=== PATIENT | male | born 1970 | race Caucasian/White ===

== ENCOUNTER 2016-10-24 19:02 | Emergency (ER) | payer MEDICARE, OTHER ==
[~2016-10-24] VITALS: Ht 180.3 cm; Wt 83.6 kg
[~2016-10-24 19:02] MED LIST: DILT60 PO; ENAL5 PO
[2016-10-24 19:27] LABS: GLUCOSE,POINT OF CARE 113 MG/DL (70-110)
[2016-10-24] MEDS ORDERED: INSREG SQ (19:38)
[2016-10-24 21:46] VITALS: BP 128/80
[2016-10-24 21:56] LABS: INFLUENZA TYPE B NEGATIVE FOR TYPE B (NEGATIVE)
== END 2016-10-24 21:55 | disposition home or self-care (01) ==
LOC: EMS 19:04
DX: J40 Bronchitis, not specified as acute or chronic (principal); I11.0 Hypertensive heart disease with heart failure; I50.9 Heart failure, unspecified; E11.9 Type 2 diabetes mellitus without complications; Z79.4 Long term (current) use of insulin
CPT/HCPCS: 71020; 82962; 87804; 99285

== ENCOUNTER 2017-09-26 11:36 | Emergency (ER) | payer MEDICARE, MEDICAID ==
[2017-09-26] VITALS (7 sets, daily range): BP systolic 117–128; BP diastolic 70–74
[~2017-09-26] VITALS: Ht 177.8 cm; Wt 86.5 kg
[~2017-09-26 11:36] MED LIST changes: -DILT60 PO; -ENAL5 PO; +INSREG SQ; +METO25 PO
[2017-09-26 12:02] LABS: GLUCOSE,POINT OF CARE 119 MG/DL (70-110)
[2017-09-26 12:25] LABS: EOSINOPHILS % (AUTO) 2.8 % (1.0-6.0); HEMATOCRIT 22.7 % (41-53); HEMOGLOBIN 7.3 g/dL (13.5-17.5); LYMPHOCYTES # (AUTO) 1.3 K/uL (1.0-4.8); LYMPHOCYTES % (AUTO) 10.8 % (22.0-44.0); MEAN CORPUSCULAR HEMOGLOBIN 31.4 pg (26.0-34.0); MEAN CORPUSCULAR HGB CONC 32.2 G/dL (31.0-37.0); MEAN CORPUSCULAR VOLUME 98 fL (80-100); MONOCYTES # (AUTO) 1.5 K/uL (0.1-1.0); MONOCYTES % (AUTO) 11.7 % (2.0-9.0); NEUTROPHILS # (AUTO) 9.1 K/uL (1.8-7.7); NEUTROPHILS % (AUTO) 73.7 % (40.0-70.0); PLATELET COUNT (AUTO) 495 K/uL (150-450); RED BLOOD CELL COUNT(AUTO) 2.33 MIL/uL (4.50-5.90); RED CELL DISTRIBUTION WIDTH 19.4 % (11.5-14.5)
[2017-09-26 12:41] LABS: CALCIUM, TOTAL 9.5 mg/dL (8.8-10.5); CREATININE 6.34 mg/dL (0.60-1.30); POTASSIUM 4.6 mmol/L (3.5-5.1)
[2017-09-26] MEDS ORDERED: SODIUM CHLORIDE 0.9% 500 ML IV ONE (16:37)
== END 2017-09-26 19:36 | disposition home or self-care (01) ==
LOC: EMS 11:40
DX: I13.2 Hypertensive heart and chronic kidney disease with heart failure and with stage 5 chronic kidney disease, or end stage renal disease (principal); I50.9 Heart failure, unspecified; N18.6 End stage renal disease; E11.22 Type 2 diabetes mellitus with diabetic chronic kidney disease; Z99.2 Dependence on renal dialysis; Z79.4 Long term (current) use of insulin
CPT/HCPCS: 36415; 36430; 80048; 82271; 82962; 85025; 86850; 86900; 86901; 86920; 99285; J7040; P9016

== ENCOUNTER 2017-10-17 13:42 | Emergency (ER) | payer MEDICARE, MEDICAID ==
[~2017-10-17] VITALS: Ht 180.3 cm; Wt 86.6 kg
[2017-10-17 13:52] LABS: GLUCOSE,POINT OF CARE 82 MG/DL (70-110)
[2017-10-17 15:39] LABS: BASOPHILS % (AUTO) 0.8 % (0.0-2.0); EOSINOPHILS % (AUTO) 5.4 % (1.0-6.0); HEMATOCRIT 21.8 % (41-53); LYMPHOCYTES # (AUTO) 1.4 K/uL (1.0-4.8); LYMPHOCYTES % (AUTO) 11.4 % (22.0-44.0); MEAN CORPUSCULAR HEMOGLOBIN 31.1 pg (26.0-34.0); MEAN CORPUSCULAR HGB CONC 32.2 G/dL (31.0-37.0); MEAN CORPUSCULAR VOLUME 97 fL (80-100); MONOCYTES # (AUTO) 1.2 K/uL (0.1-1.0); NEUTROPHILS # (AUTO) 8.7 K/uL (1.8-7.7); NEUTROPHILS % (AUTO) 72.4 % (40.0-70.0); PLATELET COUNT (AUTO) 376 K/uL (150-450); RED BLOOD CELL COUNT(AUTO) 2.25 MIL/uL (4.50-5.90); RED CELL DISTRIBUTION WIDTH 19.1 % (11.5-14.5)
[2017-10-17 15:58] LABS: CALCIUM, TOTAL 9.6 mg/dL (8.8-10.5); CREATININE 6.55 mg/dL (0.60-1.30); POTASSIUM 4.4 mmol/L (3.5-5.1)
[2017-10-17 16:02] LABS: ALBUMIN 2.5 g/dL (3.4-5.0); BILIRUBIN,TOTAL 0.4 mg/dL (0.1-1.0); TOTAL PROTEIN, SERUM 7.2 g/dL (6.4-8.2)
[2017-10-17 16:29] VITALS: BP 144/77
== END 2017-10-17 16:31 | disposition home or self-care (01) ==
LOC: EMS 13:44
DX: I13.2 Hypertensive heart and chronic kidney disease with heart failure and with stage 5 chronic kidney disease, or end stage renal disease (principal); E11.22 Type 2 diabetes mellitus with diabetic chronic kidney disease; N18.6 End stage renal disease; I50.9 Heart failure, unspecified; D64.9 Anemia, unspecified; I25.10 Atherosclerotic heart disease of native coronary artery without angina pectoris; R53.83 Other fatigue; Z88.8 Allergy status to other drugs, medicaments and biological substances; Z79.4 Long term (current) use of insulin; Z99.2 Dependence on renal dialysis
CPT/HCPCS: 82962; 93005; 99285

== ENCOUNTER 2017-10-20 01:43 | Emergency (ER) | payer MEDICARE, MEDICAID ==
[~2017-10-20] VITALS: Ht 177.8 cm; Wt 86.5 kg
[2017-10-20] MEDS ORDERED: SEVEC800 PO (01:58)
[2017-10-20 02:08] LABS: GLUCOSE,POINT OF CARE 69 MG/DL (70-110)
[2017-10-20 02:21] LABS: HEMATOCRIT 21.9 % (41-53); HEMOGLOBIN 7.1 g/dL (13.5-17.5); LYMPHOCYTES # (AUTO) 0.9 K/uL (1.0-4.8); LYMPHOCYTES % (AUTO) 7.3 % (22.0-44.0); MEAN CORPUSCULAR HGB CONC 32.6 G/dL (31.0-37.0); MEAN CORPUSCULAR VOLUME 95 fL (80-100); MONOCYTES # (AUTO) 0.9 K/uL (0.1-1.0); MONOCYTES % (AUTO) 7.2 % (2.0-9.0); NEUTROPHILS # (AUTO) 9.9 K/uL (1.8-7.7); NEUTROPHILS % (AUTO) 79.5 % (40.0-70.0); PLATELET COUNT (AUTO) 429 K/uL (150-450); RED CELL DISTRIBUTION WIDTH 19.6 % (11.5-14.5)
[2017-10-20 02:29] LABS: CALCIUM, TOTAL 9.5 mg/dL (8.8-10.5); CREATININE 7.22 mg/dL (0.60-1.30); POTASSIUM 3.9 mmol/L (3.5-5.1)
[2017-10-20 02:33] LABS: INR 1.1 (0.9-1.1); PROTHROMBIN TIME 11.5 SEC (9.4-11.6)
[2017-10-20 02:36] LABS: ALBUMIN 2.5 g/dL (3.4-5.0); BILIRUBIN,TOTAL 0.3 mg/dL (0.1-1.0); TOTAL PROTEIN, SERUM 7.2 g/dL (6.4-8.2)
[2017-10-20 05:11] VITALS: BP 148/79
[2017-10-20] MEDS ORDERED: MetroNIDAZOLE 250 MG TABLET PO ONE (05:15)
[2017-10-20] MEDS ORDERED: TraMADol HCL 50 MG TABLET PO ONE (05:15)
[2017-10-20] MEDS ORDERED: CIPROFLOXACIN HCL 250 MG TABLET PO ONE (05:15)
== END 2017-10-20 05:58 | disposition home or self-care (01) ==
LOC: EMS 01:45
DX: K52.9 Noninfective gastroenteritis and colitis, unspecified (principal); I13.2 Hypertensive heart and chronic kidney disease with heart failure and with stage 5 chronic kidney disease, or end stage renal disease; E11.22 Type 2 diabetes mellitus with diabetic chronic kidney disease; N18.6 End stage renal disease; I50.9 Heart failure, unspecified; I25.10 Atherosclerotic heart disease of native coronary artery without angina pectoris; Z99.2 Dependence on renal dialysis; Z88.6 Allergy status to analgesic agent; Z79.4 Long term (current) use of insulin; Z79.899 Other long term (current) drug therapy
CPT/HCPCS: 74176; 82962; 99285

== ENCOUNTER 2017-10-22 16:11 | Emergency (ER) | payer MEDICARE, MEDICAID ==
[~2017-10-22] VITALS: Ht 177.8 cm; Wt 88.5 kg
[~2017-10-22 16:11] MED LIST changes: +SEVEC800 PO
[2017-10-22] MEDS ORDERED: antibiotic PO (16:26)
[2017-10-22] MEDS ORDERED: TRAM50TA4 PO (16:26)
[2017-10-22 16:53] LABS: BASOPHILS % (AUTO) 0.9 % (0.0-2.0); EOSINOPHILS % (AUTO) 4.8 % (1.0-6.0); HEMATOCRIT 22.3 % (41-53); LYMPHOCYTES # (AUTO) 1.1 K/uL (1.0-4.8); LYMPHOCYTES % (AUTO) 9.5 % (22.0-44.0); MEAN CORPUSCULAR HEMOGLOBIN 30.2 pg (26.0-34.0); MEAN CORPUSCULAR HGB CONC 31.2 G/dL (31.0-37.0); MEAN CORPUSCULAR VOLUME 97 fL (80-100); MONOCYTES # (AUTO) 0.8 K/uL (0.1-1.0); MONOCYTES % (AUTO) 7.2 % (2.0-9.0); NEUTROPHILS # (AUTO) 8.7 K/uL (1.8-7.7); NEUTROPHILS % (AUTO) 77.6 % (40.0-70.0); PLATELET COUNT (AUTO) 483 K/uL (150-450); RED BLOOD CELL COUNT(AUTO) 2.31 MIL/uL (4.50-5.90); RED CELL DISTRIBUTION WIDTH 19.9 % (11.5-14.5)
[2017-10-22 17:10] LABS: INR 1.2 (0.9-1.1); PROTHROMBIN TIME 12.6 SEC (9.4-11.6)
[2017-10-22 17:12] LABS: CALCIUM, TOTAL 9.5 mg/dL (8.8-10.5); CREATININE 6.12 mg/dL (0.60-1.30); POTASSIUM 4.1 mmol/L (3.5-5.1)
[2017-10-22 17:17] LABS: ALBUMIN 2.6 g/dL (3.4-5.0); BILIRUBIN,TOTAL 0.3 mg/dL (0.1-1.0)
[2017-10-22 17:30] VITALS: BP 140/79
== END 2017-10-22 18:10 | disposition home or self-care (01) ==
LOC: EMS 16:13
DX: I13.2 Hypertensive heart and chronic kidney disease with heart failure and with stage 5 chronic kidney disease, or end stage renal disease (principal); E11.22 Type 2 diabetes mellitus with diabetic chronic kidney disease; N18.6 End stage renal disease; I50.9 Heart failure, unspecified; D64.9 Anemia, unspecified; Z99.2 Dependence on renal dialysis; Z79.4 Long term (current) use of insulin; Z79.899 Other long term (current) drug therapy; Z88.8 Allergy status to other drugs, medicaments and biological substances
CPT/HCPCS: 82962; 86850; 86900; 86901; 93005; 99285

== ENCOUNTER 2017-12-04 07:28 | Emergency (ER) | payer MEDICARE, MEDICAID ==
[~2017-12-04] VITALS: Ht 177.8 cm; Wt 86.5 kg
[~2017-12-04 07:28] MED LIST changes: +TRAM50TA4 PO; +antibiotic PO
[2017-12-04 07:42] LABS: GLUCOSE,POINT OF CARE 89 MG/DL (70-110)
[2017-12-04 08:43] LABS: BASOPHILS % (AUTO) 0.7 % (0.0-2.0); EOSINOPHILS % (AUTO) 5.4 % (1.0-6.0); HEMATOCRIT 35.8 % (41-53); HEMOGLOBIN 11.4 g/dL (13.5-17.5); LYMPHOCYTES # (AUTO) 0.8 K/uL (1.0-4.8); LYMPHOCYTES % (AUTO) 8.8 % (22.0-44.0); MEAN CORPUSCULAR VOLUME 88 fL (80-100); MONOCYTES # (AUTO) 0.8 K/uL (0.1-1.0); MONOCYTES % (AUTO) 8.8 % (2.0-9.0); NEUTROPHILS # (AUTO) 7.4 K/uL (1.8-7.7); NEUTROPHILS % (AUTO) 76.3 % (40.0-70.0); PLATELET COUNT (AUTO) 308 K/uL (150-450); RED BLOOD CELL COUNT(AUTO) 4.08 MIL/uL (4.50-5.90); RED CELL DISTRIBUTION WIDTH 18.5 % (11.5-14.5)
[2017-12-04 08:49] LABS: CALCIUM, TOTAL 9.5 mg/dL (8.8-10.5); CREATININE 9.52 mg/dL (0.60-1.30); POTASSIUM 4.4 mmol/L (3.5-5.1)
[2017-12-04 09:03] LABS: ALBUMIN 2.7 g/dL (3.4-5.0); BILIRUBIN,TOTAL 0.5 mg/dL (0.1-1.0); TOTAL PROTEIN, SERUM 7.1 g/dL (6.4-8.2)
[2017-12-04 10:06] VITALS: BP 154/93
== END 2017-12-04 10:25 | disposition home or self-care (01) ==
LOC: EMS 07:29
DX: I13.2 Hypertensive heart and chronic kidney disease with heart failure and with stage 5 chronic kidney disease, or end stage renal disease (principal); I50.9 Heart failure, unspecified; E11.22 Type 2 diabetes mellitus with diabetic chronic kidney disease; N18.6 End stage renal disease; Z88.8 Allergy status to other drugs, medicaments and biological substances; Z79.4 Long term (current) use of insulin; Z99.2 Dependence on renal dialysis
CPT/HCPCS: 82962; 93005; 99285

== ENCOUNTER 2017-12-28 19:16 | Emergency (ER) | payer MEDICARE, MEDICAID ==
[~2017-12-28] VITALS: Ht 177.8 cm; Wt 100.0 kg
[~2017-12-28 19:16] MED LIST changes: -TRAM50TA4 PO; -antibiotic PO
[2017-12-28] MEDS ORDERED: DILT-39 PO (19:38)
[2017-12-28 20:02] LABS: GLUCOSE,POINT OF CARE 113 MG/DL (70-110)
[2017-12-28 20:23] VITALS: BP 164/88
== END 2017-12-28 20:26 | disposition home or self-care (01) ==
LOC: EMS 19:17
DX: K40.90 Unilateral inguinal hernia, without obstruction or gangrene, not specified as recurrent (principal); E11.9 Type 2 diabetes mellitus without complications; I11.0 Hypertensive heart disease with heart failure; I50.9 Heart failure, unspecified; I25.10 Atherosclerotic heart disease of native coronary artery without angina pectoris; Z79.4 Long term (current) use of insulin; Z79.899 Other long term (current) drug therapy; Z88.8 Allergy status to other drugs, medicaments and biological substances
CPT/HCPCS: 99282

== ENCOUNTER 2018-01-01 18:08 | Emergency (ER) | payer MEDICARE, MEDICAID ==
[~2018-01-01] VITALS: Ht 177.8 cm; Wt 86.0 kg
[~2018-01-01 18:08] MED LIST changes: +DILT-39 PO
[2018-01-01 18:39] LABS: GLUCOSE,POINT OF CARE 92 MG/DL (70-110)
[2018-01-01 19:03] LABS: BASOPHILS % (AUTO) 0.8 % (0.0-2.0); EOSINOPHILS % (AUTO) 7.1 % (1.0-6.0); HEMATOCRIT 34.4 % (41-53); LYMPHOCYTES # (AUTO) 0.8 K/uL (1.0-4.8); LYMPHOCYTES % (AUTO) 13.4 % (22.0-44.0); MEAN CORPUSCULAR HEMOGLOBIN 26.8 pg (26.0-34.0); MEAN CORPUSCULAR HGB CONC 31.9 G/dL (31.0-37.0); MEAN CORPUSCULAR VOLUME 84 fL (80-100); MONOCYTES # (AUTO) 0.9 K/uL (0.1-1.0); MONOCYTES % (AUTO) 15.2 % (2.0-9.0); NEUTROPHILS # (AUTO) 3.7 K/uL (1.8-7.7); NEUTROPHILS % (AUTO) 63.5 % (40.0-70.0); PLATELET COUNT (AUTO) 320 K/uL (150-450); RED CELL DISTRIBUTION WIDTH 19.2 % (11.5-14.5)
[2018-01-01 19:13] LABS: CALCIUM, TOTAL 9.1 mg/dL (8.8-10.5); CREATININE 4.37 mg/dL (0.60-1.30)
[2018-01-01 19:18] LABS: ALBUMIN 2.7 g/dL (3.4-5.0); BILIRUBIN,TOTAL 0.3 mg/dL (0.1-1.0); TOTAL PROTEIN, SERUM 7.3 g/dL (6.4-8.2)
[2018-01-01] MEDS ORDERED: OMEPRAZOLE 20 MG CAPSULE PO ONE (20:30)
[2018-01-01] MEDS ORDERED: PB/HYOSCY/ATR/SCOP/LIDO/MAALOX 55 ML BOTTLE PO ONE (20:30)
[2018-01-01 21:30] VITALS: BP 144/86
== END 2018-01-01 21:54 | disposition home or self-care (01) ==
LOC: EMS 18:09
DX: K29.70 Gastritis, unspecified, without bleeding (principal); K52.9 Noninfective gastroenteritis and colitis, unspecified; R93.5 Abnormal findings on diagnostic imaging of other abdominal regions, including retroperitoneum; E11.9 Type 2 diabetes mellitus without complications; I11.0 Hypertensive heart disease with heart failure; I50.9 Heart failure, unspecified; I25.10 Atherosclerotic heart disease of native coronary artery without angina pectoris; Z79.4 Long term (current) use of insulin; Z79.899 Other long term (current) drug therapy; Z88.8 Allergy status to other drugs, medicaments and biological substances
CPT/HCPCS: 74176; 93005; 99285

== ENCOUNTER 2018-01-19 22:26 | Emergency (ER) | payer MEDICARE, MEDICAID ==
[~2018-01-19] VITALS: Ht 177.8 cm; Wt 86.0 kg
[2018-01-19 22:43] LABS: GLUCOSE,POINT OF CARE 118 MG/DL (70-110)
[2018-01-19 23:02] LABS: BASOPHILS % (AUTO) 1.2 % (0.0-2.0); EOSINOPHILS % (AUTO) 5.1 % (1.0-6.0); HEMATOCRIT 33.9 % (41-53); HEMOGLOBIN 10.8 g/dL (13.5-17.5); LYMPHOCYTES # (AUTO) 0.9 K/uL (1.0-4.8); LYMPHOCYTES % (AUTO) 14.7 % (22.0-44.0); MEAN CORPUSCULAR HEMOGLOBIN 26.8 pg (26.0-34.0); MEAN CORPUSCULAR HGB CONC 31.9 G/dL (31.0-37.0); MEAN CORPUSCULAR VOLUME 84 fL (80-100); MONOCYTES # (AUTO) 0.8 K/uL (0.1-1.0); MONOCYTES % (AUTO) 13.1 % (2.0-9.0); NEUTROPHILS # (AUTO) 4.2 K/uL (1.8-7.7); NEUTROPHILS % (AUTO) 65.9 % (40.0-70.0); PLATELET COUNT (AUTO) 412 K/uL (150-450); RED BLOOD CELL COUNT(AUTO) 4.02 MIL/uL (4.50-5.90); RED CELL DISTRIBUTION WIDTH 20.9 % (11.5-14.5)
[2018-01-19 23:12] LABS: CALCIUM, TOTAL 9.3 mg/dL (8.8-10.5); CREATININE 8.89 mg/dL (0.60-1.30); POTASSIUM 5.1 mmol/L (3.5-5.1)
[2018-01-19 23:18] LABS: ALBUMIN 2.8 g/dL (3.4-5.0); BILIRUBIN,TOTAL 0.4 mg/dL (0.1-1.0); TOTAL PROTEIN, SERUM 7.3 g/dL (6.4-8.2)
[2018-01-20 02:10] VITALS: BP 141/87
== END 2018-01-20 02:24 | disposition home or self-care (01) ==
LOC: EMS 22:27
DX: I13.2 Hypertensive heart and chronic kidney disease with heart failure and with stage 5 chronic kidney disease, or end stage renal disease (principal); E11.22 Type 2 diabetes mellitus with diabetic chronic kidney disease; N18.6 End stage renal disease; I50.9 Heart failure, unspecified; I25.10 Atherosclerotic heart disease of native coronary artery without angina pectoris; Z99.2 Dependence on renal dialysis; Z79.4 Long term (current) use of insulin; Z88.5 Allergy status to narcotic agent
CPT/HCPCS: 93005; 99285

== ENCOUNTER 2018-02-07 00:28 | Emergency (ER) | payer MEDICARE, MEDICAID ==
[~2018-02-07] VITALS: Ht 177.8 cm; Wt 84.0 kg
[2018-02-07 00:53] LABS: GLUCOSE,POINT OF CARE 81 MG/DL (70-110)
[2018-02-07] MEDS ORDERED: OMEP20 PO (00:53)
[2018-02-07] MEDS ORDERED: LABE200T PO (00:53)
[2018-02-07 01:34] LABS: BASOPHILS % (AUTO) 0.8 % (0.0-2.0); EOSINOPHILS % (AUTO) 3.9 % (1.0-6.0); HEMATOCRIT 33.9 % (41-53); LYMPHOCYTES # (AUTO) 0.8 K/uL (1.0-4.8); LYMPHOCYTES % (AUTO) 8.1 % (22.0-44.0); MEAN CORPUSCULAR HEMOGLOBIN 27.3 pg (26.0-34.0); MEAN CORPUSCULAR HGB CONC 32.6 G/dL (31.0-37.0); MEAN CORPUSCULAR VOLUME 84 fL (80-100); MONOCYTES # (AUTO) 0.7 K/uL (0.1-1.0); MONOCYTES % (AUTO) 7.6 % (2.0-9.0); NEUTROPHILS # (AUTO) 7.5 K/uL (1.8-7.7); NEUTROPHILS % (AUTO) 79.6 % (40.0-70.0); PLATELET COUNT (AUTO) 325 K/uL (150-450); RED BLOOD CELL COUNT(AUTO) 4.04 MIL/uL (4.50-5.90); RED CELL DISTRIBUTION WIDTH 18.9 % (11.5-14.5)
[2018-02-07 01:36] LABS: CALCIUM, TOTAL 9.6 mg/dL (8.8-10.5); CREATININE 7.41 mg/dL (0.60-1.30)
[2018-02-07 01:42] LABS: BILIRUBIN,TOTAL 0.6 mg/dL (0.1-1.0); TOTAL PROTEIN, SERUM 7.5 g/dL (6.4-8.2)
[2018-02-07] MEDS ORDERED: PB/HYOSCY/ATR/SCOP/LIDO/MAALOX 55 ML BOTTLE PO ONE (02:15)
[2018-02-07] MEDS ORDERED: ONDANSETRON HCL 4 MG/2 ML VIAL IVP ONE (03:15)
[2018-02-07] MEDS ORDERED: IPRATROPIUM BROMIDE 0.5 MG/2.5 ML NEB SOLUTION NEB ONE (03:15)
[2018-02-07] MEDS ORDERED: ALBUTEROL SULFATE 2.5 MG/0.5 ML NEB SOLUTION NEB ONE (03:15)
[2018-02-07] MEDS ORDERED: BARIUM SULFATE 0.1% SUSPENSION 450 ML BOTTLE PO ONE (04:00)
[2018-02-07] MEDS ORDERED: ALBUTEROL SULFATE HFA 90 MCG/PUFF 8 GM INHALER IH ONE (04:45)
[2018-02-07 04:49] VITALS: BP 98/65
[2018-02-07] MEDS ORDERED: LIDOCAINE HCL/PF 1% 2 ML VIAL IM ONE (05:00)
[2018-02-07] MEDS ORDERED: CefTRIAXone SODIUM 1 GM/VIAL IM ONE (05:00)
== END 2018-02-07 05:03 | disposition left against medical advice (07) ==
LOC: EMS 00:29
DX: I25.10 Atherosclerotic heart disease of native coronary artery without angina pectoris (principal); I13.2 Hypertensive heart and chronic kidney disease with heart failure and with stage 5 chronic kidney disease, or end stage renal disease; E11.22 Type 2 diabetes mellitus with diabetic chronic kidney disease; N18.6 End stage renal disease; I50.9 Heart failure, unspecified; E66.9 Obesity, unspecified; Z99.2 Dependence on renal dialysis; Z88.5 Allergy status to narcotic agent; Z68.26 Body mass index [BMI] 26.0-26.9, adult
CPT/HCPCS: 36415; 74022; 80053; 82962; 83690; 83880; 84484; 85025; 93005; 94640; 96374; 99285; J2405; J3535

== ENCOUNTER 2018-02-22 22:03 | Emergency (ER) | payer MEDICARE, MEDICAID ==
[~2018-02-22] VITALS: Ht 177.8 cm; Wt 84.0 kg
[~2018-02-22 22:03] MED LIST changes: -DILT-39 PO; +LABE200T5 PO; -METO25 PO; +OMEP20 PO
[2018-02-22 22:29] LABS: GLUCOSE,POINT OF CARE 52 MG/DL (70-110)
[2018-02-22] MEDS ORDERED: DEXTROSE 50%-WATER 25 GM/50 ML SYRINGE IVP ONE (22:30)
[2018-02-22 22:50] LABS: BASOPHILS % (AUTO) 1.5 % (0.0-2.0); EOSINOPHILS % (AUTO) 5.4 % (1.0-6.0); HEMOGLOBIN 9.4 g/dL (13.5-17.5); LYMPHOCYTES # (AUTO) 1.1 K/uL (1.0-4.8); LYMPHOCYTES % (AUTO) 10.8 % (22.0-44.0); MEAN CORPUSCULAR HEMOGLOBIN 27.7 pg (26.0-34.0); MEAN CORPUSCULAR HGB CONC 32.5 G/dL (31.0-37.0); MEAN CORPUSCULAR VOLUME 85 fL (80-100); MONOCYTES # (AUTO) 0.8 K/uL (0.1-1.0); MONOCYTES % (AUTO) 8.6 % (2.0-9.0); NEUTROPHILS # (AUTO) 7.2 K/uL (1.8-7.7); NEUTROPHILS % (AUTO) 73.7 % (40.0-70.0); PLATELET COUNT (AUTO) 296 K/uL (150-450)
[2018-02-22 22:58] LABS: CALCIUM, TOTAL 9.2 mg/dL (8.8-10.5); CREATININE 7.02 mg/dL (0.60-1.30); POTASSIUM 3.4 mmol/L (3.5-5.1)
[2018-02-22 23:03] LABS: ALBUMIN 2.6 g/dL (3.4-5.0); BILIRUBIN,TOTAL 0.3 mg/dL (0.1-1.0); TOTAL PROTEIN, SERUM 6.5 g/dL (6.4-8.2)
[2018-02-22 23:44] LABS: GLUCOSE,POINT OF CARE 145 MG/DL (70-110)
[2018-02-23 00:23] LABS: GLUCOSE,POINT OF CARE 172 MG/DL (70-110)
[2018-02-23 00:30] VITALS: BP 179/99
[2018-02-23] MEDS ORDERED: LABETALOL HCL 100 MG TABLET PO ONE (00:30)
[2018-02-23 02:23] LABS: GLUCOSE,POINT OF CARE 159 MG/DL (70-110)
[2018-02-23 02:23] LABS: GLUCOSE,POINT OF CARE 160 MG/DL (70-110)
== END 2018-02-23 02:20 | disposition home or self-care (01) ==
LOC: EMS 22:06
DX: E11.649 Type 2 diabetes mellitus with hypoglycemia without coma (principal); I11.0 Hypertensive heart disease with heart failure; I50.9 Heart failure, unspecified; Z79.4 Long term (current) use of insulin; Z88.8 Allergy status to other drugs, medicaments and biological substances; Z79.899 Other long term (current) drug therapy
CPT/HCPCS: 82948; 96374; 99284

== ENCOUNTER 2018-03-03 08:22 | Emergency (ER) | payer MEDICARE, MEDICAID ==
[~2018-03-03] VITALS: Ht 177.8 cm; Wt 84.0 kg
[~2018-03-03 08:22] MED LIST changes: -OMEP20 PO
[2018-03-03 08:38] LABS: GLUCOSE,POINT OF CARE 121 MG/DL (70-110)
[2018-03-03 09:45] LABS: BASOPHILS % (AUTO) 0.9 % (0.0-2.0); EOSINOPHILS % (AUTO) 4.6 % (1.0-6.0); HEMOGLOBIN 10.5 g/dL (13.5-17.5); LYMPHOCYTES # (AUTO) 0.8 K/uL (1.0-4.8); LYMPHOCYTES % (AUTO) 9.4 % (22.0-44.0); MEAN CORPUSCULAR HEMOGLOBIN 28.4 pg (26.0-34.0); MEAN CORPUSCULAR HGB CONC 32.8 G/dL (31.0-37.0); MEAN CORPUSCULAR VOLUME 87 fL (80-100); MONOCYTES # (AUTO) 0.8 K/uL (0.1-1.0); MONOCYTES % (AUTO) 9.5 % (2.0-9.0); NEUTROPHILS # (AUTO) 6.3 K/uL (1.8-7.7); NEUTROPHILS % (AUTO) 75.6 % (40.0-70.0); PLATELET COUNT (AUTO) 235 K/uL (150-450); RED BLOOD CELL COUNT(AUTO) 3.69 MIL/uL (4.50-5.90); RED CELL DISTRIBUTION WIDTH 19.9 % (11.5-14.5)
[2018-03-03 10:35] LABS: CALCIUM, TOTAL 9.1 mg/dL (8.8-10.5); CREATININE 9.75 mg/dL (0.60-1.30); POTASSIUM 3.9 mmol/L (3.5-5.1)
[2018-03-03 10:40] LABS: ALBUMIN 2.9 g/dL (3.4-5.0); TOTAL PROTEIN, SERUM 7.1 g/dL (6.4-8.2)
[2018-03-03] MEDS ORDERED: CefTRIAXone SODIUM 1 GM/VIAL IV ONE (11:15)
[2018-03-03] MEDS ORDERED: ALBUTEROL SULFATE HFA 90 MCG/PUFF 8 GM INHALER IH ONE (11:30)
[2018-03-03] MEDS ORDERED: CefTRIAXone SODIUM 1 GM in DEXTROSE 5%-WATER 10 ML IV ONE (11:30)
[2018-03-03 11:53] VITALS: BP 145/81
[2018-03-07] MEDS ORDERED: CEFDINIR PO ×2 (08:22→11:26)
== END 2018-03-03 11:55 | disposition home or self-care (01) ==
LOC: EMS 08:23
DX: J18.9 Pneumonia, unspecified organism (principal); I11.0 Hypertensive heart disease with heart failure; I50.9 Heart failure, unspecified; E11.9 Type 2 diabetes mellitus without complications; I25.10 Atherosclerotic heart disease of native coronary artery without angina pectoris; Z79.4 Long term (current) use of insulin; Z99.2 Dependence on renal dialysis; Z88.5 Allergy status to narcotic agent
CPT/HCPCS: 36415; 71046; 80053; 82962; 85025; 93005; 94640; 96365; 99285; J0696; J7060; J3535

== ENCOUNTER 2018-03-19 19:28 | Inpatient (IN) | payer MEDICARE, MEDICAID ==
[~2018-03-19] VITALS: Ht 177.8 cm; Wt 80.4 kg
[~2018-03-19 19:28] MED LIST changes: +LEVO250 PO; +ZOLP5 PO
[2018-03-19 19:42] LABS: GLUCOSE,POINT OF CARE 111 MG/DL (70-110)
[2018-03-19 20:01] LABS: BASOPHILS % (AUTO) 1.3 % (0.0-2.0); EOSINOPHILS % (AUTO) 4.2 % (1.0-6.0); HEMATOCRIT 35.5 % (41-53); HEMOGLOBIN 11.5 g/dL (13.5-17.5); LYMPHOCYTES # (AUTO) 0.7 K/uL (1.0-4.8); LYMPHOCYTES % (AUTO) 8.7 % (22.0-44.0); MEAN CORPUSCULAR HEMOGLOBIN 28.5 pg (26.0-34.0); MEAN CORPUSCULAR HGB CONC 32.4 G/dL (31.0-37.0); MEAN CORPUSCULAR VOLUME 88 fL (80-100); MONOCYTES # (AUTO) 0.6 K/uL (0.1-1.0); MONOCYTES % (AUTO) 7.5 % (2.0-9.0); NEUTROPHILS # (AUTO) 6.1 K/uL (1.8-7.7); NEUTROPHILS % (AUTO) 78.3 % (40.0-70.0); PLATELET COUNT (AUTO) 262 K/uL (150-450); RED BLOOD CELL COUNT(AUTO) 4.04 MIL/uL (4.50-5.90); RED CELL DISTRIBUTION WIDTH 19.4 % (11.5-14.5)
[2018-03-19 20:14] LABS: CALCIUM, TOTAL 9.9 mg/dL (8.8-10.5); CREATININE 4.23 mg/dL (0.60-1.30); POTASSIUM 4.2 mmol/L (3.5-5.1)
[2018-03-19 20:20] LABS: ALBUMIN 2.8 g/dL (3.4-5.0); BILIRUBIN,TOTAL 0.5 mg/dL (0.1-1.0); TOTAL PROTEIN, SERUM 7.3 g/dL (6.4-8.2)
[2018-03-19] MEDS ORDERED: SODIUM CHLORIDE 0.9% 250 ML IV ONE (22:15)
[2018-03-19] MEDS ORDERED: DEXTROSE 50%-WATER 25 GM/50 ML SYRINGE IVP PRN (22:15)
[2018-03-19] MEDS ORDERED: ACETAMINOPHEN 325 MG TABLET PO PRN (22:15)
[2018-03-19] MEDS ORDERED: MORPHINE SULFATE 4 MG/ML SYRINGE IVP ONE (22:15)
[2018-03-19] MEDS: ONDANSETRON HCL 4 MG/2 ML VIAL IVP PRN (22:47)
[2018-03-20] MEDS: MORPHINE SULFATE 2 MG/ML SYRINGE IVP PRN ×4 (00:01→21:35)
[2018-03-20 00:10] VITALS: BP 102/72
[2018-03-20] MEDS: ONDANSETRON HCL 4 MG/2 ML VIAL IVP PRN (02:56)
[2018-03-20 03:09] LABS: GLUCOMETER DEV NAME(LOC) 6N 2D; GLUCOSE,POINT OF CARE 142 MG/DL (70-110)
[2018-03-20 03:31] VITALS: BP 101/62
[2018-03-20 07:28] VITALS: BP 134/82
[2018-03-20] MEDS ORDERED: SODIUM CHLORIDE 0.9% 0 ML IV ONE (08:19)
[2018-03-20] MEDS ORDERED: SODIUM CHLORIDE 0.9% 1,000 ML IV ONE (08:39)
[2018-03-20] MEDS ORDERED: GUM MASTIC/STORAX/MSAL/ALCOHOL LIQUID 0.67 ML VIAL TP ONE (08:39)
[2018-03-20] MEDS ORDERED: RINGERS SOLUTION,LACTATED 0 ML IV ONE (08:39)
[2018-03-20] MEDS ORDERED: SODIUM CHLORIDE 0.9% 1,000 ML IV SCH (09:00)
[2018-03-20] MEDS: DOCUSATE SODIUM 100 MG CAPSULE PO SCH ×2 (09:00→20:44)
[2018-03-20 09:11] LABS: INR 1.2 (0.9-1.1); PROTHROMBIN TIME 12.7 SEC (9.4-11.6)
[2018-03-20 10:13] LABS: GLUCOMETER DEV NAME(LOC) 6N 2D; GLUCOSE,POINT OF CARE 140 MG/DL (70-110)
[2018-03-20] MEDS ORDERED: ACETAMINOPHEN 1000 MG/ISO-OSM 100 ML IV ONE (10:54)
[2018-03-20] MEDS ORDERED: CefoTEtan DISOD 2 GM/DEXTROSE 50 ML IV ONE (10:54)
[2018-03-20] MEDS ORDERED: BUPIVACAINE HCL/PF 0.25% 30 ML VIAL ONE (11:48)
[2018-03-20] MEDS ORDERED: ONDANSETRON HCL 4 MG/2 ML VIAL IVP ONE (12:00)
[2018-03-20] MEDS ORDERED: FentaNYL CITRATE-PF 250 MCG/5 ML VIAL IVP ONE (12:00)
[2018-03-20] MEDS ORDERED: ROCURONIUM BROMIDE 10 MG/ML 5 ML VIAL IVP ONE (12:00)
[2018-03-20] MEDS ORDERED: CefoTEtan DISODIUM 1 GM/VIAL IVP ONE (12:00)
[2018-03-20] MEDS ORDERED: PROPOFOL 1% 20 ML VIAL IVP ONE (12:00)
[2018-03-20] MEDS ORDERED: BUPIVACAINE LIPOSOME/PF 1.3%-13.3MG/ML SUSPENSION 20 ML VIAL INJ ONE (12:00)
[2018-03-20] MEDS ORDERED: MIDAZOLAM HCL 2 MG/2 ML VIAL IVP ONE (12:00)
[2018-03-20] MEDS ORDERED: GLYCOPYRROLATE 0.2 MG/ML VIAL IM ONE (12:00)
[2018-03-20] MEDS ORDERED: NEOSTIGMINE METHYLSULFATE 1 MG/ML 10 ML VIAL IVP ONE (12:00)
[2018-03-20] MEDS ORDERED: LIDOCAINE HCL/PF 2% 5 ML VIAL INJ ONE (12:00)
[2018-03-20] MEDS ORDERED: ONDANSETRON HCL 4 MG/2 ML VIAL IVP PRN (13:30)
[2018-03-20] MEDS ORDERED: DEXTROSE 5%-0.45% SODIUM CHL 1,000 ML IV ONE (15:30)
[2018-03-20 15:32] VITALS: BP 111/67
[2018-03-20 19:44] LABS: GLUCOMETER DEV NAME(LOC) 6N 2D; GLUCOSE,POINT OF CARE 140 MG/DL (70-110)
[2018-03-20 19:59] VITALS: BP 123/66
[2018-03-20] MEDS: INSULIN LISPRO 100 UNITS/ML SQ PRN (20:45)
[2018-03-20 21:58] LABS: GLUCOMETER DEV NAME(LOC) 6N 1E; GLUCOSE,POINT OF CARE 165 MG/DL (70-110)
[2018-03-20 23:46] VITALS: BP 100/58
[2018-03-21 04:00] VITALS: BP 118/62
[2018-03-21 06:11] LABS: BASOPHILS % (AUTO) 0.6 % (0.0-2.0); EOSINOPHILS % (AUTO) 1.4 % (1.0-6.0); HEMATOCRIT 34.7 % (41-53); HEMOGLOBIN 11.3 g/dL (13.5-17.5); LYMPHOCYTES # (AUTO) 0.6 K/uL (1.0-4.8); LYMPHOCYTES % (AUTO) 6.7 % (22.0-44.0); MEAN CORPUSCULAR HEMOGLOBIN 28.8 pg (26.0-34.0); MEAN CORPUSCULAR HGB CONC 32.7 G/dL (31.0-37.0); MEAN CORPUSCULAR VOLUME 88 fL (80-100); MONOCYTES # (AUTO) 0.6 K/uL (0.1-1.0); MONOCYTES % (AUTO) 6.9 % (2.0-9.0); NEUTROPHILS % (AUTO) 84.4 % (40.0-70.0); PLATELET COUNT (AUTO) 239 K/uL (150-450); RED BLOOD CELL COUNT(AUTO) 3.94 MIL/uL (4.50-5.90); RED CELL DISTRIBUTION WIDTH 19.1 % (11.5-14.5)
[2018-03-21] MEDS: INSULIN LISPRO 100 UNITS/ML SQ PRN (06:24)
[2018-03-21 06:30] LABS: CREATININE 7.79 mg/dL (0.60-1.30); MAGNESIUM 2.2 mg/dL (1.80-2.40); PHOSPHORUS 4.8 mg/dL (2.5-4.9)
[2018-03-21 06:36] LABS: POTASSIUM 6.2 mmol/L (3.5-5.1)
[2018-03-21] MEDS: DOCUSATE SODIUM 100 MG CAPSULE PO SCH ×2 (07:35→21:00)
[2018-03-21] MEDS: HEPARIN SODIUM,PORCINE 5,000 UNITS/ML VIAL SQ SCH ×2 (07:49→17:34)
[2018-03-21] MEDS: MORPHINE SULFATE 2 MG/ML SYRINGE IVP PRN ×2 (07:51→11:49)
[2018-03-21 08:00] VITALS: BP 100/58
[2018-03-21 11:34] VITALS: BP 128/68
[2018-03-21] MEDS ORDERED: SODIUM CHLORIDE 0.9% 1,000 ML IV ONE (12:41)
[2018-03-21 13:54] LABS: GLUCOMETER DEV NAME(LOC) 6N 2D; GLUCOSE,POINT OF CARE 124 MG/DL (70-110)
[2018-03-21 13:54] LABS: GLUCOMETER DEV NAME(LOC) 6N 1E; GLUCOSE,POINT OF CARE 143 MG/DL (70-110)
[2018-03-21] MEDS: DEXTROSE 5%-0.45% SODIUM CHL 1,000 ML IV SCH (17:36)
[2018-03-21 19:42] VITALS: BP 137/71
[2018-03-21 21:44] LABS: GLUCOMETER DEV NAME(LOC) 6N 1E; GLUCOSE,POINT OF CARE 113 MG/DL (70-110)
[2018-03-21 21:44] LABS: GLUCOMETER DEV NAME(LOC) 6N 1E; GLUCOSE,POINT OF CARE 137 MG/DL (70-110)
[2018-03-22] VITALS (7 sets, daily range): BP systolic 128–152; BP diastolic 50–79
[2018-03-22] MEDS: HEPARIN SODIUM,PORCINE 5,000 UNITS/ML VIAL SQ SCH ×3 (00:33→16:52)
[2018-03-22] MEDS: MORPHINE SULFATE 2 MG/ML SYRINGE IVP PRN ×3 (00:48→20:06)
[2018-03-22] MEDS: INSULIN LISPRO 100 UNITS/ML SQ PRN (05:46)
[2018-03-22 06:05] LABS: BASOPHILS % (AUTO) 0.1 % (0.0-2.0); EOSINOPHILS % (AUTO) 2.6 % (1.0-6.0); HEMATOCRIT 32.1 % (41-53); HEMOGLOBIN 10.4 g/dL (13.5-17.5); LYMPHOCYTES # (AUTO) 0.5 K/uL (1.0-4.8); LYMPHOCYTES % (AUTO) 5.6 % (22.0-44.0); MEAN CORPUSCULAR HEMOGLOBIN 28.5 pg (26.0-34.0); MEAN CORPUSCULAR HGB CONC 32.5 G/dL (31.0-37.0); MEAN CORPUSCULAR VOLUME 88 fL (80-100); MONOCYTES # (AUTO) 0.8 K/uL (0.1-1.0); MONOCYTES % (AUTO) 8.3 % (2.0-9.0); NEUTROPHILS # (AUTO) 8.2 K/uL (1.8-7.7); NEUTROPHILS % (AUTO) 83.4 % (40.0-70.0); PLATELET COUNT (AUTO) 217 K/uL (150-450); RED BLOOD CELL COUNT(AUTO) 3.66 MIL/uL (4.50-5.90); RED CELL DISTRIBUTION WIDTH 18.8 % (11.5-14.5)
[2018-03-22 06:25] LABS: CALCIUM, TOTAL 9.4 mg/dL (8.8-10.5); CREATININE 5.47 mg/dL (0.60-1.30); PHOSPHORUS 5.5 mg/dL (2.5-4.9); POTASSIUM 4.2 mmol/L (3.5-5.1)
[2018-03-22] MEDS: DOCUSATE SODIUM 100 MG CAPSULE PO SCH ×4 (08:20→21:01)
[2018-03-22 09:14] LABS: GLUCOMETER DEV NAME(LOC) 6N 2D; GLUCOSE,POINT OF CARE 142 MG/DL (70-110)
[2018-03-22] MEDS ORDERED: BISACODYL 10 MG RECTAL RECTAL SUPPOSITORY PR ONE (11:30)
[2018-03-22 12:24] LABS: GLUCOMETER DEV NAME(LOC) 6N 1E; GLUCOSE,POINT OF CARE 116 MG/DL (70-110)
[2018-03-22] MEDS: METOCLOPRAMIDE HCL 5 MG/ML 2 ML VIAL IVP SCH ×2 (14:00→18:22)
[2018-03-22 17:54] LABS: GLUCOMETER DEV NAME(LOC) 6N 1E; GLUCOSE,POINT OF CARE 115 MG/DL (70-110)
[2018-03-22] MEDS: DEXTROSE 5%-0.45% SODIUM CHL 1,000 ML IV SCH (18:21)
[2018-03-22 21:59] LABS: GLUCOMETER DEV NAME(LOC) 6N 2D; GLUCOSE,POINT OF CARE 107 MG/DL (70-110)
[2018-03-23] VITALS (7 sets, daily range): BP systolic 136–149; BP diastolic 76–87
[2018-03-23] MEDS: METOCLOPRAMIDE HCL 5 MG/ML 2 ML VIAL IVP SCH ×4 (00:06→17:49)
[2018-03-23] MEDS: HEPARIN SODIUM,PORCINE 5,000 UNITS/ML VIAL SQ SCH ×3 (00:07→16:13)
[2018-03-23 05:43] LABS: GLUCOMETER DEV NAME(LOC) 6N 1E; GLUCOSE,POINT OF CARE 104 MG/DL (70-110)
[2018-03-23] MEDS: MORPHINE SULFATE 2 MG/ML SYRINGE IVP PRN ×2 (06:06→20:58)
[2018-03-23 06:17] LABS: BASOPHILS % (AUTO) 0.3 % (0.0-2.0); EOSINOPHILS % (AUTO) 6.3 % (1.0-6.0); HEMATOCRIT 32.6 % (41-53); HEMOGLOBIN 10.9 g/dL (13.5-17.5); LYMPHOCYTES # (AUTO) 0.8 K/uL (1.0-4.8); MEAN CORPUSCULAR HEMOGLOBIN 29.3 pg (26.0-34.0); MEAN CORPUSCULAR HGB CONC 33.6 G/dL (31.0-37.0); MEAN CORPUSCULAR VOLUME 87 fL (80-100); MONOCYTES # (AUTO) 0.9 K/uL (0.1-1.0); MONOCYTES % (AUTO) 8.7 % (2.0-9.0); NEUTROPHILS # (AUTO) 7.8 K/uL (1.8-7.7); NEUTROPHILS % (AUTO) 76.7 % (40.0-70.0); PLATELET COUNT (AUTO) 193 K/uL (150-450); RED BLOOD CELL COUNT(AUTO) 3.74 MIL/uL (4.50-5.90); RED CELL DISTRIBUTION WIDTH 18.6 % (11.5-14.5)
[2018-03-23 06:40] LABS: CALCIUM, TOTAL 9.4 mg/dL (8.8-10.5); CREATININE 8.15 mg/dL (0.60-1.30); POTASSIUM 4.5 mmol/L (3.5-5.1)
[2018-03-23] MEDS: DOCUSATE SODIUM 100 MG CAPSULE PO SCH ×2 (08:39→20:54)
[2018-03-23] MEDS: INSULIN LISPRO 100 UNITS/ML SQ PRN ×2 (12:04→17:25)
[2018-03-23 17:09] LABS: GLUCOMETER DEV NAME(LOC) 6N 2D; GLUCOSE,POINT OF CARE 94 MG/DL (70-110)
[2018-03-23 19:44] LABS: GLUCOMETER DEV NAME(LOC) 6N 1E; GLUCOSE,POINT OF CARE 86 MG/DL (70-110)
[2018-03-24] MEDS: HEPARIN SODIUM,PORCINE 5,000 UNITS/ML VIAL SQ SCH ×4 (00:07→23:30)
[2018-03-24] MEDS: METOCLOPRAMIDE HCL 5 MG/ML 2 ML VIAL IVP SCH ×5 (00:07→23:30)
[2018-03-24] MEDS: DEXTROSE 5%-0.45% SODIUM CHL 1,000 ML IV SCH (00:08)
[2018-03-24 00:58] LABS: GLUCOMETER DEV NAME(LOC) 6N 2D; GLUCOSE,POINT OF CARE 79 MG/DL (70-110)
[2018-03-24 04:00] VITALS: BP 156/87
[2018-03-24 06:14] LABS: GLUCOMETER DEV NAME(LOC) 6N 2D; GLUCOSE,POINT OF CARE 70 MG/DL (70-110)
[2018-03-24 08:00] VITALS: BP 152/92
[2018-03-24] MEDS: DOCUSATE SODIUM 100 MG CAPSULE PO SCH ×2 (08:35→20:30)
[2018-03-24] MEDS ORDERED: BISACODYL 10 MG RECTAL RECTAL SUPPOSITORY PR ONE (09:30)
[2018-03-24] MEDS ORDERED: SODIUM CHLORIDE 0.9% 2,000 ML IV ONE (10:24)
[2018-03-24] MEDS: INSULIN LISPRO 100 UNITS/ML SQ PRN ×2 (13:38→17:45)
[2018-03-24 14:29] LABS: GLUCOMETER DEV NAME(LOC) 6N 2D; GLUCOSE,POINT OF CARE 81 MG/DL (70-110)
[2018-03-24 14:53] VITALS: BP 124/71
[2018-03-24] MEDS: AmLODIPine BESYLATE 5 MG TABLET PO SCH (16:17)
[2018-03-24] MEDS: MORPHINE SULFATE 2 MG/ML SYRINGE IVP PRN ×2 (16:29→20:30)
[2018-03-24 18:49] LABS: GLUCOMETER DEV NAME(LOC) 6N 2D; GLUCOSE,POINT OF CARE 109 MG/DL (70-110)
[2018-03-24 19:41] VITALS: BP 145/88
[2018-03-24 20:44] LABS: GLUCOMETER DEV NAME(LOC) 6N 2D; GLUCOSE,POINT OF CARE 104 MG/DL (70-110)
[2018-03-25 00:12] VITALS: BP 136/79
[2018-03-25 04:42] VITALS: BP 150/79
[2018-03-25] MEDS: METOCLOPRAMIDE HCL 5 MG/ML 2 ML VIAL IVP SCH ×2 (05:19→13:34)
[2018-03-25 06:10] LABS: CALCIUM, TOTAL 9.8 mg/dL (8.8-10.5); CREATININE 6.61 mg/dL (0.60-1.30); POTASSIUM 3.8 mmol/L (3.5-5.1)
[2018-03-25 07:18] VITALS: BP 141/85
[2018-03-25] MEDS: HEPARIN SODIUM,PORCINE 5,000 UNITS/ML VIAL SQ SCH (08:29)
[2018-03-25] MEDS: DOCUSATE SODIUM 100 MG CAPSULE PO SCH (08:29)
[2018-03-25] MEDS: AmLODIPine BESYLATE 5 MG TABLET PO SCH (08:29)
[2018-03-25] MEDS ORDERED: MAGNESIUM HYDROXIDE SUSPENSION 30 ML UDCUP PO PRN (10:00)
[2018-03-25 11:21] VITALS: BP 127/75
[2018-03-25] MEDS ORDERED: DSS100 PO (14:53)
[2018-03-25 14:55] LABS: GLUCOMETER DEV NAME(LOC) 6N 1E; GLUCOSE,POINT OF CARE 129 MG/DL (70-110)
[2018-03-25 14:55] LABS: GLUCOMETER DEV NAME(LOC) 6N 1E; GLUCOSE,POINT OF CARE 139 MG/DL (70-110)
[2018-03-25] MEDS ORDERED: PANT40TA25 PO (14:55)
[2018-03-25] MEDS ORDERED: AMLO-511 PO (14:55)
== END 2018-03-25 15:10 | disposition home or self-care (01) | DRG 329 ==
LOC: EMS 19:29 → 6N 22:00
PROVIDERS: ADMIT Internal Medicine; ATTEND Internal Medicine
PROC: 0DTL0ZZ Resection of Transverse Colon, Open Approach (ICD-10-PCS; principal; 2018-03-20 10:30)
PROC: 5A1D70Z Performance of Urinary Filtration, Intermittent, Less than 6 Hours Per Day (ICD-10-PCS; 2018-03-21)
PROC: 5A1D70Z Performance of Urinary Filtration, Intermittent, Less than 6 Hours Per Day (ICD-10-PCS; 2018-03-24)
DX: K56.609 Unspecified intestinal obstruction, unspecified as to partial versus complete obstruction (principal); N18.6 End stage renal disease; I13.2 Hypertensive heart and chronic kidney disease with heart failure and with stage 5 chronic kidney disease, or end stage renal disease; D64.9 Anemia, unspecified; E11.22 Type 2 diabetes mellitus with diabetic chronic kidney disease; E87.5 Hyperkalemia; I25.10 Atherosclerotic heart disease of native coronary artery without angina pectoris; I50.9 Heart failure, unspecified; K56.7 Ileus, unspecified; Z79.4 Long term (current) use of insulin; Z90.49 Acquired absence of other specified parts of digestive tract; Z99.2 Dependence on renal dialysis; Z88.6 Allergy status to analgesic agent; Z79.899 Other long term (current) drug therapy; Z83.3 Family history of diabetes mellitus
CPT/HCPCS: 74022; 74176; 83735; 84100; 86850; 86900; 86901; 87081; 87340; 93005; 93306; 96361; 96374; 97116; 97161; 97166; 97535; 99285; C9290; J0131; J1644; J2250; J2270; J2405; J2704; J2765; J3010; J3490; J7030; J7050; J7120

== ENCOUNTER 2019-02-21 00:29 | Emergency (ER) | payer BC, MEDICAID, MEDICARE ==
[~2019-02-21] VITALS: Ht 177.8 cm; Wt 85.5 kg
[~2019-02-21 00:29] MED LIST changes: +AMLO5TAB9 PO; +DSS100 PO; -LEVO250 PO; +PANT40TA25 PO
[2019-02-21 00:59] LABS: GLUCOSE,POINT OF CARE 134 MG/DL (70-110)
[2019-02-21] MEDS ORDERED: ACETAMINOPHEN 500 MG TABLET PO ONE (03:00)
[2019-02-21 05:34] VITALS: BP 140/80
== END 2019-02-21 05:51 | disposition home or self-care (01) ==
LOC: EMS 00:36
DX: S93.602A Unspecified sprain of left foot, initial encounter (principal); S86.812A Strain of other muscle(s) and tendon(s) at lower leg level, left leg, initial encounter; S90.32XA Contusion of left foot, initial encounter; I11.0 Hypertensive heart disease with heart failure; I50.9 Heart failure, unspecified; I25.10 Atherosclerotic heart disease of native coronary artery without angina pectoris; E11.9 Type 2 diabetes mellitus without complications; Z88.5 Allergy status to narcotic agent; Z79.4 Long term (current) use of insulin; W22.8XXA Striking against or struck by other objects, initial encounter; Y93.89 Activity, other specified; Y92.89 Other specified places as the place of occurrence of the external cause; Y99.8 Other external cause status

== ENCOUNTER 2019-05-13 18:00 | Emergency (ER) | payer BC ==
[~2019-05-13] VITALS: Ht 177.8 cm; Wt 84.5 kg
[~2019-05-13 18:00] MED LIST changes: -AMLO5TAB9 PO; +CIP250 PO; -DSS100 PO; -LABE200T5 PO; +METR500 PO; -PANT40TA25 PO; +SEVE800T17 PO; -SEVEC800 PO; -ZOLP5 PO
[2019-05-13 19:06] LABS: GLUCOSE,POINT OF CARE 147 MG/DL (70-110)
[2019-05-13 20:13] VITALS: BP 116/73
== END 2019-05-13 21:07 | disposition home or self-care (01) ==
LOC: EMS 18:01
DX: K59.00 Constipation, unspecified (principal); I25.10 Atherosclerotic heart disease of native coronary artery without angina pectoris; I11.0 Hypertensive heart disease with heart failure; I50.9 Heart failure, unspecified; Z88.5 Allergy status to narcotic agent; Z79.4 Long term (current) use of insulin

== ENCOUNTER 2019-07-15 09:30 | Emergency (ER) | payer BC ==
[~2019-07-15] VITALS: Ht 175.3 cm; Wt 87.0 kg
[~2019-07-15 09:30] MED LIST changes: -CIP250 PO; -METR500 PO
[2019-07-15] MEDS ORDERED: GLIP5 PO (09:38)
[2019-07-15 09:52] LABS: GLUCOSE,POINT OF CARE 128 MG/DL (70-110)
[2019-07-15] MEDS ORDERED: DICYCLOMINE HCL 20 MG TABLET PO ONE (10:30)
[2019-07-15 10:47] LABS: BASOPHILS % (AUTO) 0.4 % (0.0-2.0); EOSINOPHILS % (AUTO) 0.3 % (1.0-6.0); HEMATOCRIT 37.7 % (41-53); HEMOGLOBIN 12.5 g/dL (13.5-17.5); LYMPHOCYTES % (AUTO) 5.5 % (22.0-44.0); MEAN CORPUSCULAR HEMOGLOBIN 31.3 pg (26.0-34.0); MEAN CORPUSCULAR HGB CONC 33.2 G/dL (31.0-37.0); MEAN CORPUSCULAR VOLUME 94 fL (80-100); MONOCYTES # (AUTO) 1.3 K/uL (0.1-1.0); MONOCYTES % (AUTO) 7.2 % (2.0-9.0); NEUTROPHILS # (AUTO) 15.9 K/uL (1.8-7.7); PLATELET COUNT (AUTO) 268 K/uL (150-450); RED CELL DISTRIBUTION WIDTH 14.1 % (11.5-14.5)
[2019-07-15 10:51] LABS: NEUTROPHILS % (AUTO) 86.6 % (40.0-70.0)
[2019-07-15 11:04] LABS: ANION GAP 7 mmol/L (8-16); CALCIUM, TOTAL 9.3 mg/dL (8.8-10.5); CARBON DIOXIDE 33 mmol/L (22-29); CHLORIDE 91 mmol/L (98-107); CREATININE 9.63 mg/dL (0.60-1.30); GLOMERULAR FILTR. RATE CALC 6 mL/min (>60); GLUCOSE,RANDOM 146 mg/dL (70-110); POTASSIUM 5.8 mmol/L (3.5-5.1); SODIUM SERUM 131 mmol/L (136-145); UREA NITROGEN, BLOOD 45 mg/dL (7-18)
[2019-07-15 11:09] LABS: ALANINE AMINOTRANSFERASE 23 U/L (12-78); ALBUMIN 3.8 g/dL (3.4-5.0); ALKALINE PHOSPHATASE 155 U/L (46-116); ASPARTATE AMINOTRANSFERASE < 5 U/L (15-37); BILIRUBIN,TOTAL 0.4 mg/dL (0.1-1.0); LIPASE 111 U/L (73-393); TOTAL PROTEIN, SERUM 8.4 g/dL (6.4-8.2)
[2019-07-15] MEDS ORDERED: MetroNIDAZOLE 250 MG TABLET PO ONE (12:15)
[2019-07-15] MEDS ORDERED: CIPROFLOXACIN HCL 250 MG TABLET PO ONE (12:15)
[2019-07-15 12:19] VITALS: BP 120/59
[2019-07-15] MEDS ORDERED: ACETAMINOPHEN 500 MG TABLET ONE (12:36)
== END 2019-07-15 12:46 | disposition home or self-care (01) ==
LOC: EMS 09:31
DX: K52.9 Noninfective gastroenteritis and colitis, unspecified (principal); I13.2 Hypertensive heart and chronic kidney disease with heart failure and with stage 5 chronic kidney disease, or end stage renal disease; E11.22 Type 2 diabetes mellitus with diabetic chronic kidney disease; N18.6 End stage renal disease; I50.9 Heart failure, unspecified; I25.10 Atherosclerotic heart disease of native coronary artery without angina pectoris; Z99.2 Dependence on renal dialysis; Z88.5 Allergy status to narcotic agent
CPT/HCPCS: 74176

== ENCOUNTER 2019-08-14 16:48 | Emergency (ER) | payer SELFPAY ==
[~2019-08-14] VITALS: Ht 177.8 cm; Wt 88.2 kg
[~2019-08-14 16:48] MED LIST changes: +GLIP5 PO; -INSREG SQ
[2019-08-14] MEDS ORDERED: HYD50 PO (17:27)
[2019-08-14 17:37] LABS: GLUCOSE,POINT OF CARE 123 MG/DL (70-110)
[2019-08-14] MEDS ORDERED: IBUPROFEN 800 MG TABLET PO ONE (19:45)
[2019-08-14 22:08] VITALS: BP 143/86
== END 2019-08-14 22:19 | disposition home or self-care (01) ==
LOC: EMS 16:49
DX: J20.9 Acute bronchitis, unspecified (principal); R07.89 Other chest pain; I25.10 Atherosclerotic heart disease of native coronary artery without angina pectoris; I11.0 Hypertensive heart disease with heart failure; I50.9 Heart failure, unspecified; E11.9 Type 2 diabetes mellitus without complications; Z88.5 Allergy status to narcotic agent

== ENCOUNTER 2020-11-10 12:32 | Emergency (ER) | payer MEDICARE, MEDICAID ==
[~2020-11-10] VITALS: Ht 177.8 cm; Wt 96.8 kg
[~2020-11-10 12:32] MED LIST changes: +HYD50 PO
[2020-11-10] MEDS ORDERED: BACITRACIN 0.9 GM PACKET OINTMENT TP ONE (14:00)
[2020-11-10 14:11] VITALS: BP 167/90
== END 2020-11-10 14:51 | disposition home or self-care (01) ==
LOC: EMS 12:37
DX: S90.424A Blister (nonthermal), right lesser toe(s), initial encounter (principal); E11.65 Type 2 diabetes mellitus with hyperglycemia; I11.0 Hypertensive heart disease with heart failure; I50.9 Heart failure, unspecified; I25.10 Atherosclerotic heart disease of native coronary artery without angina pectoris; Z88.5 Allergy status to narcotic agent; X58.XXXA Exposure to other specified factors, initial encounter; Y93.89 Activity, other specified; Y92.89 Other specified places as the place of occurrence of the external cause; Y99.8 Other external cause status
CPT/HCPCS: 99283

== ENCOUNTER 2020-12-22 09:26 | Emergency (ER) | payer MEDICARE, MEDICAID ==
[~2020-12-22] VITALS: Ht 175.3 cm; Wt 98.0 kg
[2020-12-22 11:40] VITALS: BP 140/90
== END 2020-12-22 12:00 | disposition home or self-care (01) ==
LOC: EMS 09:34
DX: S93.601A Unspecified sprain of right foot, initial encounter (principal); I11.0 Hypertensive heart disease with heart failure; I50.9 Heart failure, unspecified; I25.10 Atherosclerotic heart disease of native coronary artery without angina pectoris; E11.9 Type 2 diabetes mellitus without complications; I10 Essential (primary) hypertension; W19.XXXA Unspecified fall, initial encounter; Y93.89 Activity, other specified; Y92.89 Other specified places as the place of occurrence of the external cause; Y99.8 Other external cause status
CPT/HCPCS: 82962; 99284

== ENCOUNTER 2021-05-11 22:22 | Emergency (ER) | payer MEDICARE, MEDICAID ==
[~2021-05-11] VITALS: Ht 177.8 cm; Wt 92.0 kg
[2021-05-11] MEDS ORDERED: HydrALAZINE HCL 25 MG TABLET PO ONE (23:45)
[2021-05-12] MEDS ORDERED: MAG HYDROX/AL HYDROX/SIMETH 30 ML SUSP UDCUP PO ONE (01:00)
[2021-05-12 02:58] LABS: BASOPHILS % (AUTO) 0.9 % (0.0-2.0); EOSINOPHILS % (AUTO) 2.3 % (1.0-6.0); HEMATOCRIT 36.6 % (41-53); LYMPHOCYTES # (AUTO) 1.3 K/uL (1.0-4.8); LYMPHOCYTES % (AUTO) 16.9 % (22.0-44.0); MEAN CORPUSCULAR HEMOGLOBIN 30.9 pg (26.0-34.0); MEAN CORPUSCULAR HGB CONC 32.8 G/dL (31.0-37.0); MEAN CORPUSCULAR VOLUME 94 fL (80-100); MONOCYTES # (AUTO) 0.7 K/uL (0.1-1.0); MONOCYTES % (AUTO) 9.7 % (2.0-9.0); NEUTROPHILS # (AUTO) 5.3 K/uL (1.8-7.7); NEUTROPHILS % (AUTO) 70.2 % (40.0-70.0); PLATELET COUNT (AUTO) 203 K/uL (150-450); RED BLOOD CELL COUNT(AUTO) 3.88 MIL/uL (4.50-5.90); RED CELL DISTRIBUTION WIDTH 13.6 % (11.5-14.5)
[2021-05-12 03:16] LABS: CALCIUM, TOTAL 8.5 mg/dL (8.8-10.5); CREATININE 9.78 mg/dL (0.60-1.30); POTASSIUM 5.3 mmol/L (3.5-5.1); PROTHROMBIN TIME 10.9 SEC (9.4-11.6)
[2021-05-12 03:24] LABS: LACTIC ACID 1.3 mmol/L (0.4-2.0)
[2021-05-12 03:37] LABS: ALBUMIN 3.9 g/dL (3.4-5.0); BILIRUBIN,TOTAL 0.3 mg/dL (0.1-1.0); TOTAL PROTEIN, SERUM 8.3 g/dL (6.4-8.2)
[2021-05-12] MEDS ORDERED: LABETALOL HCL 5 MG/ML 20 ML VIAL IVP ONE (04:00)
[2021-05-12 04:01] VITALS: BP 161/83
== END 2021-05-12 04:23 | disposition home or self-care (01) ==
LOC: EMS 22:26
DX: K80.20 Calculus of gallbladder without cholecystitis without obstruction (principal); K86.9 Disease of pancreas, unspecified; R12 Heartburn; I13.2 Hypertensive heart and chronic kidney disease with heart failure and with stage 5 chronic kidney disease, or end stage renal disease; E11.22 Type 2 diabetes mellitus with diabetic chronic kidney disease; N18.6 End stage renal disease; I50.9 Heart failure, unspecified; I25.10 Atherosclerotic heart disease of native coronary artery without angina pectoris; Z99.2 Dependence on renal dialysis; Z88.5 Allergy status to narcotic agent
CPT/HCPCS: 36415; 71045; 74176; 80053; 82550; 83605; 83690; 83880; 84484; 85025; 85610; 85730; 93005; 96374; 99285; J3490

== ENCOUNTER 2021-05-13 20:13 | Emergency (ER) | payer MEDICARE, MEDICAID ==
[~2021-05-13] VITALS: Ht 177.8 cm; Wt 92.0 kg
[2021-05-13 21:54] LABS: BASOPHILS % (AUTO) 0.7 % (0.0-2.0); EOSINOPHILS % (AUTO) 2.5 % (1.0-6.0); HEMATOCRIT 37.3 % (41-53); HEMOGLOBIN 12.1 g/dL (13.5-17.5); LYMPHOCYTES # (AUTO) 1.2 K/uL (1.0-4.8); LYMPHOCYTES % (AUTO) 15.6 % (22.0-44.0); MEAN CORPUSCULAR HEMOGLOBIN 30.6 pg (26.0-34.0); MEAN CORPUSCULAR HGB CONC 32.5 G/dL (31.0-37.0); MEAN CORPUSCULAR VOLUME 94 fL (80-100); MONOCYTES # (AUTO) 0.6 K/uL (0.1-1.0); MONOCYTES % (AUTO) 7.5 % (2.0-9.0); NEUTROPHILS # (AUTO) 5.7 K/uL (1.8-7.7); NEUTROPHILS % (AUTO) 73.7 % (40.0-70.0); PLATELET COUNT (AUTO) 246 K/uL (150-450); RED BLOOD CELL COUNT(AUTO) 3.96 MIL/uL (4.50-5.90); RED CELL DISTRIBUTION WIDTH 13.6 % (11.5-14.5)
[2021-05-13 22:03] LABS: CALCIUM, TOTAL 9.3 mg/dL (8.8-10.5); CREATININE 8.62 mg/dL (0.60-1.30); POTASSIUM 5.3 mmol/L (3.5-5.1)
[2021-05-13 22:08] LABS: BILIRUBIN,TOTAL 0.3 mg/dL (0.1-1.0); TOTAL PROTEIN, SERUM 8.3 g/dL (6.4-8.2)
[2021-05-13 22:11] LABS: LACTIC ACID 1.1 mmol/L (0.4-2.0)
[2021-05-13] MEDS: OMEPRAZOLE 20 MG CAPSULE PO ONE (23:27)
[2021-05-13 23:37] VITALS: BP 161/92
[2021-05-14] MEDS: OMEPRAZOLE 20 MG CAPSULE PO ONE (00:40)
== END 2021-05-14 00:42 | disposition home or self-care (01) ==
LOC: EMS 20:19
DX: K29.70 Gastritis, unspecified, without bleeding (principal); K40.90 Unilateral inguinal hernia, without obstruction or gangrene, not specified as recurrent; I13.2 Hypertensive heart and chronic kidney disease with heart failure and with stage 5 chronic kidney disease, or end stage renal disease; E11.22 Type 2 diabetes mellitus with diabetic chronic kidney disease; N18.6 End stage renal disease; I50.9 Heart failure, unspecified; Z99.2 Dependence on renal dialysis; Z88.5 Allergy status to narcotic agent
CPT/HCPCS: 80053; 83605; 83690; 84484; 85025; 99283

== ENCOUNTER 2021-06-30 19:33 | Emergency (ER) | payer MEDICARE, OTHER ==
[~2021-06-30] VITALS: Ht 177.8 cm; Wt 94.0 kg
[2021-06-30 20:28] VITALS: BP 139/81
== END 2021-06-30 21:30 | disposition left against medical advice (07) ==
LOC: EMS 19:36
DX: R13.10 Dysphagia, unspecified (principal); Z53.21 Procedure and treatment not carried out due to patient leaving prior to being seen by health care provider

== ENCOUNTER 2021-07-04 05:29 | Inpatient (IN) | payer MEDICARE, OTHER ==
[~2021-07-04] VITALS: Ht 179.1 cm; Wt 98.5 kg
[2021-07-04] MEDS ORDERED: CALC667C PO (06:02)
[2021-07-04] MEDS ORDERED: GABA-529 PO (06:02)
[2021-07-04] MEDS ORDERED: SEVE0.8P6 PO (06:04)
[2021-07-04 06:12] LABS: BASOPHILS % (AUTO) 0.3 % (0.0-2.0); EOSINOPHILS % (AUTO) 0.1 % (1.0-6.0); HEMATOCRIT 46.2 % (41-53); HEMOGLOBIN 15.4 g/dL (13.5-17.5); LYMPHOCYTES # (AUTO) 0.5 K/uL (1.0-4.8); MEAN CORPUSCULAR HEMOGLOBIN 30.3 pg (26.0-34.0); MEAN CORPUSCULAR HGB CONC 33.3 G/dL (31.0-37.0); MEAN CORPUSCULAR VOLUME 91 fL (80-100); MONOCYTES # (AUTO) 0.3 K/uL (0.1-1.0); MONOCYTES % (AUTO) 4.9 % (2.0-9.0); NEUTROPHILS # (AUTO) 5.6 K/uL (1.8-7.7); PLATELET COUNT (AUTO) 182 K/uL (150-450); RED BLOOD CELL COUNT(AUTO) 5.08 MIL/uL (4.50-5.90); RED CELL DISTRIBUTION WIDTH 13.8 % (11.5-14.5)
[2021-07-04 06:12] LABS: COVID AG,FIA SOURCE NASOPHARYNGEAL
[2021-07-04 06:21] LABS: ANION GAP 17 mmol/L (8-16); CALCIUM, TOTAL 8.5 mg/dL (8.8-10.5); CARBON DIOXIDE 30 mmol/L (22-29); CHLORIDE 90 mmol/L (98-107); CREATININE 19.14 mg/dL (0.60-1.30); GLOMERULAR FILTR. RATE CALC 3 mL/min (>60); GLUCOSE,RANDOM 148 mg/dL (70-110); POTASSIUM 5.1 mmol/L (3.5-5.1); SODIUM SERUM 137 mmol/L (136-145); UREA NITROGEN, BLOOD 91 mg/dL (7-18)
[2021-07-04 06:25] LABS: ALANINE AMINOTRANSFERASE 33 U/L (12-78); ALBUMIN 3.4 g/dL (3.4-5.0); ALKALINE PHOSPHATASE 122 U/L (46-116); ASPARTATE AMINOTRANSFERASE 13 U/L (15-37); BILIRUBIN,TOTAL 0.5 mg/dL (0.1-1.0); TOTAL PROTEIN, SERUM 8.8 g/dL (6.4-8.2)
[2021-07-04 06:28] LABS: NEUTROPHILS % (AUTO) 86.7 % (40.0-70.0)
[2021-07-04 06:33] LABS: INFLUENZA TYPE A NEGATIVE FOR TYPE A (NEGATIVE); INFLUENZA TYPE B NEGATIVE FOR TYPE B (NEGATIVE)
[2021-07-04 07:25] LABS: GLUCOMETER DEV NAME(LOC) ERT.5; GLUCOSE,POINT OF CARE 88 MG/DL (70-110)
[2021-07-04 08:12] LABS: GLUCOMETER DEV NAME(LOC) ERT.5; GLUCOSE,POINT OF CARE 66 MG/DL (70-110)
[2021-07-04] MEDS ORDERED: ACETAMINOPHEN 325 MG TABLET PO PRN ×2 (09:00→11:15)
[2021-07-04 09:14] LABS: GLUCOMETER DEV NAME(LOC) ERT.5; GLUCOSE,POINT OF CARE 45 MG/DL (70-110)
[2021-07-04] MEDS ORDERED: DEXTROSE 50%-WATER 25 GM/50 ML SYRINGE IVP ONE (09:15)
[2021-07-04 10:14] LABS: GLUCOMETER DEV NAME(LOC) ERT.5; GLUCOSE,POINT OF CARE 146 MG/DL (70-110)
[2021-07-04] MEDS: ONDANSETRON HCL 4 MG/2 ML VIAL IVP PRN ×3 (10:37→21:04)
[2021-07-04 11:09] LABS: GLUCOSE,POINT OF CARE 61 MG/DL (70-110)
[2021-07-04] MEDS ORDERED: SEVE800T17 PO (11:11)
[2021-07-04] MEDS ORDERED: DEXTROSE 50%-WATER 25 GM/50 ML SYRINGE IVP PRN (11:15)
[2021-07-04 12:09] VITALS: BP 166/101
[2021-07-04] MEDS: ASPIRIN 81 MG CHEWABLE TABLET PO SCH (12:17)
[2021-07-04 15:44] LABS: GLUCOMETER DEV NAME(LOC) 5N.1C; GLUCOSE,POINT OF CARE 72 MG/DL (70-110)
[2021-07-04 16:15] VITALS: BP 121/87
[2021-07-04 17:59] LABS: GLUCOMETER DEV NAME(LOC) 5N.1C; GLUCOSE,POINT OF CARE 132 MG/DL (70-110)
[2021-07-04 20:14] VITALS: BP 149/86
[2021-07-04] MEDS: HEPARIN SODIUM,PORCINE 5,000 UNITS/ML VIAL SQ SCH (21:03)
[2021-07-04] MEDS: DOCUSATE SODIUM 100 MG CAPSULE PO SCH (21:04)
[2021-07-05] VITALS (7 sets, daily range): BP systolic 153–189; BP diastolic 85–102
[2021-07-05] MEDS: HydrALAZINE HCL 20 MG/ML VIAL IVP PRN ×3 (04:38→22:25)
[2021-07-05] MEDS ORDERED: ONDANSETRON HCL 4 MG/2 ML VIAL IVP PRN (05:45)
[2021-07-05] MEDS: INSULIN LISPRO 100 UNITS/ML SQ PRN ×3 (05:55→17:23)
[2021-07-05 07:21] LABS: GLUCOMETER DEV NAME(LOC) 5N.1C; GLUCOSE,POINT OF CARE 327 MG/DL (70-110)
[2021-07-05 07:21] LABS: GLUCOMETER DEV NAME(LOC) 5N.1C; GLUCOSE,POINT OF CARE 375 MG/DL (70-110)
[2021-07-05] MEDS: FAMOTIDINE 20 MG TABLET PO SCH (09:40)
[2021-07-05] MEDS: DOCUSATE SODIUM 100 MG CAPSULE PO SCH ×2 (09:40→22:24)
[2021-07-05] MEDS: ASPIRIN 81 MG CHEWABLE TABLET PO SCH (09:40)
[2021-07-05] MEDS: HEPARIN SODIUM,PORCINE 5,000 UNITS/ML VIAL SQ SCH ×2 (09:45→22:24)
[2021-07-05] MEDS: LACTULOSE 20 GM/30 ML SOLUTION UDCUP PO PRN (11:02)
[2021-07-05] MEDS: CARVEDILOL 12.5 MG TABLET PO SCH ×2 (11:14→22:24)
[2021-07-05] MEDS ORDERED: CloNIDine HCL 0.1 MG TABLET PO PRN (13:15)
[2021-07-05] MEDS: GlipiZIDE 5 MG TABLET PO SCH (17:22)
[2021-07-05] MEDS: AmLODIPine BESYLATE 10 MG TABLET PO SCH (17:22)
[2021-07-05 19:11] LABS: GLUCOMETER DEV NAME(LOC) 5N.1C; GLUCOSE,POINT OF CARE 199 MG/DL (70-110)
[2021-07-05] MEDS ORDERED: HYDROCODONE/ACETAMINOPHEN 5-325 MG TABLET PO PRN (23:30)
[2021-07-05] MEDS ORDERED: ZOLPIDEM TARTRATE 5 MG TABLET PO PRN (23:30)
[2021-07-06 04:18] VITALS: BP 133/84
[2021-07-06] MEDS: INSULIN LISPRO 100 UNITS/ML SQ PRN (06:34)
[2021-07-06 07:08] VITALS: BP 163/87
[2021-07-06] MEDS: GlipiZIDE 5 MG TABLET PO SCH (07:20)
[2021-07-06] MEDS: LACTULOSE 20 GM/30 ML SOLUTION UDCUP PO PRN (07:55)
[2021-07-06] MEDS: CARVEDILOL 12.5 MG TABLET PO SCH (07:58)
[2021-07-06] MEDS: DOCUSATE SODIUM 100 MG CAPSULE PO SCH (07:59)
[2021-07-06] MEDS: AmLODIPine BESYLATE 10 MG TABLET PO SCH (07:59)
[2021-07-06] MEDS: ASPIRIN 81 MG CHEWABLE TABLET PO SCH (07:59)
[2021-07-06] MEDS: HEPARIN SODIUM,PORCINE 5,000 UNITS/ML VIAL SQ SCH (07:59)
[2021-07-06] MEDS: FAMOTIDINE 20 MG TABLET PO SCH (07:59)
[2021-07-06] MEDS ORDERED: GlipiZIDE 5 MG TABLET PO ONE (10:30)
[2021-07-06 11:06] VITALS: BP 142/78
[2021-07-06] MEDS ORDERED: CARV12 PO (11:21)
[2021-07-06] MEDS ORDERED: AMLO-258 PO (11:22)
[2021-07-06] MEDS ORDERED: ACET-2247 PO (11:26)
[2021-07-06 12:18] LABS: GLUCOMETER DEV NAME(LOC) 5N.1C; GLUCOSE,POINT OF CARE 140 MG/DL (70-110)
[2021-07-06 12:18] LABS: GLUCOMETER DEV NAME(LOC) 5N.1C; GLUCOSE,POINT OF CARE 224 MG/DL (70-110)
[2021-07-06] MEDS ORDERED: GlipiZIDE 5 MG TABLET PO SCH (17:30)
[2021-07-06 20:00] LABS: GLUCOMETER DEV NAME(LOC) 5N.1C; GLUCOSE,POINT OF CARE 209 MG/DL (70-110)
== END 2021-07-06 14:20 | disposition home or self-care (01) | DRG 637 ==
LOC: EMS 05:30 → 5N 11:33
PROVIDERS: ADMIT Internal Medicine; ATTEND Internal Medicine
PROC: 5A1D70Z Performance of Urinary Filtration, Intermittent, Less than 6 Hours Per Day (ICD-10-PCS; principal; 2021-07-04)
PROC: 5A1D70Z Performance of Urinary Filtration, Intermittent, Less than 6 Hours Per Day (ICD-10-PCS; 2021-07-06)
DX: E11.649 Type 2 diabetes mellitus with hypoglycemia without coma (principal); U07.1 COVID-19; I13.2 Hypertensive heart and chronic kidney disease with heart failure and with stage 5 chronic kidney disease, or end stage renal disease; N18.6 End stage renal disease; E11.22 Type 2 diabetes mellitus with diabetic chronic kidney disease; I25.10 Atherosclerotic heart disease of native coronary artery without angina pectoris; E11.65 Type 2 diabetes mellitus with hyperglycemia; D63.8 Anemia in other chronic diseases classified elsewhere; E66.9 Obesity, unspecified; I50.9 Heart failure, unspecified; E11.40 Type 2 diabetes mellitus with diabetic neuropathy, unspecified; K59.00 Constipation, unspecified; Z99.2 Dependence on renal dialysis; Z79.84 Long term (current) use of oral hypoglycemic drugs; Z88.8 Allergy status to other drugs, medicaments and biological substances; Z68.30 Body mass index [BMI] 30.0-30.9, adult
CPT/HCPCS: 71045; 80053; 82948; 82962; 85025; 87081; 87804; 93005; 99291; G0480; J0360; J1644; J2405; 36415-L1; 36415-TC

== ENCOUNTER 2022-02-17 05:14 | Inpatient (IN) | payer MEDICARE, OTHER ==
[~2022-02-17] VITALS: Ht 177.8 cm; Wt 95.0 kg
[~2022-02-17 05:14] MED LIST changes: +ACET-2247 PO; +AMLO-258 PO; +CALC667C PO; +CARV12 PO; +GABA-529 PO; -GLIP5 PO; +GLIP5TAB12 PO; -HYD50 PO
[2022-02-17 05:41] LABS: GLUCOSE,POINT OF CARE 124 MG/DL (70-110)
[2022-02-17 06:44] LABS: BASOPHILS % (AUTO) 0.8 % (0.0-2.0); EOSINOPHILS % (AUTO) 2.5 % (1.0-6.0); HEMATOCRIT 37.7 % (41-53); HEMOGLOBIN 12.6 g/dL (13.5-17.5); LYMPHOCYTES # (AUTO) 0.7 K/uL (1.0-4.8); LYMPHOCYTES % (AUTO) 8.2 % (22.0-44.0); MEAN CORPUSCULAR HEMOGLOBIN 30.7 pg (26.0-34.0); MEAN CORPUSCULAR HGB CONC 33.4 G/dL (31.0-37.0); MEAN CORPUSCULAR VOLUME 92 fL (80-100); MONOCYTES # (AUTO) 0.7 K/uL (0.1-1.0); MONOCYTES % (AUTO) 8.4 % (2.0-9.0); NEUTROPHILS # (AUTO) 7.1 K/uL (1.8-7.7); NEUTROPHILS % (AUTO) 80.1 % (40.0-70.0); PLATELET COUNT (AUTO) 193 K/uL (150-450); RED BLOOD CELL COUNT(AUTO) 4.09 MIL/uL (4.50-5.90); RED CELL DISTRIBUTION WIDTH 14.4 % (11.5-14.5)
[2022-02-17 07:15] LABS: ALBUMIN 3.7 g/dL (3.4-5.0); BILIRUBIN,TOTAL 0.4 mg/dL (0.1-1.0); CALCIUM, TOTAL 8.5 mg/dL (8.8-10.5); CREATININE 12.12 mg/dL (0.60-1.30); TOTAL PROTEIN, SERUM 7.5 g/dL (6.4-8.2)
[2022-02-17 07:16] LABS: POTASSIUM 6.3 mmol/L (3.5-5.1)
[2022-02-17 07:21] LABS: COVID AG,FIA SOURCE NASOPHARYNGEAL
[2022-02-17] MEDS ORDERED: FUROSEMIDE 40 MG/4 ML VIAL IVP ONE (07:30)
[2022-02-17] MEDS ORDERED: SODIUM BICARBONATE [ADULT] 8.4% 50 MEQ/50 ML SYRINGE IVP ONE (07:30)
[2022-02-17] MEDS ORDERED: DEXTROSE 50%-WATER 25 GM/50 ML SYRINGE IVP ONE (07:30)
[2022-02-17] MEDS ORDERED: INSULIN REGULAR, HUMAN 100 UNITS/ML IVP ONE (07:30)
[2022-02-17] MEDS ORDERED: CALCIUM GLUCONATE 0.465 MEQ/ML 10 ML VIAL IVP ONE (07:30)
[2022-02-17] MEDS ORDERED: ONDANSETRON HCL 4 MG/2 ML VIAL IVP PRN ×2 (08:00→09:00)
[2022-02-17] MEDS ORDERED: ACETAMINOPHEN 325 MG TABLET PO PRN ×2 (08:00→09:00)
[2022-02-17] MEDS ORDERED: 0.9% SODIUM CHLORIDE 10 ML SYRINGE IVP PRN (08:00)
[2022-02-17] MEDS ORDERED: FAMOTIDINE 20 MG TABLET PO SCH (09:00)
[2022-02-17] MEDS ORDERED: INSULIN LISPRO 100 UNITS/ML SQ PRN (09:00)
[2022-02-17] MEDS ORDERED: ZOLPIDEM TARTRATE 5 MG TABLET PO PRN (09:00)
[2022-02-17] MEDS ORDERED: DOCUSATE SODIUM 100 MG CAPSULE PO SCH (09:00)
[2022-02-17] MEDS ORDERED: CARVEDILOL 12.5 MG TABLET PO SCH (09:00)
[2022-02-17] MEDS ORDERED: ASPIRIN 81 MG CHEWABLE TABLET PO SCH (09:00)
[2022-02-17] MEDS ORDERED: DEXTROSE 50%-WATER 25 GM/50 ML SYRINGE IVP PRN (09:00)
[2022-02-17] MEDS ORDERED: AmLODIPine BESYLATE 10 MG TABLET PO SCH (09:00)
[2022-02-17] MEDS ORDERED: CINA30TA5 PO (11:02)
[2022-02-17] MEDS ORDERED: ATOR10TA69 PO (11:06)
[2022-02-17] MEDS ORDERED: SENN-297 PO (11:06)
[2022-02-17] MEDS ORDERED: HYDR-3422 PO (11:06)
[2022-02-17] MEDS ORDERED: SODIUM CHLORIDE 0.9% 2,000 ML ONE (11:46)
[2022-02-17 12:03] VITALS: BP 170/97
[2022-02-17] MEDS ORDERED: HEPARIN SODIUM,PORCINE 5,000 UNITS/ML VIAL SQ SCH (16:00)
== END 2022-02-17 17:10 | disposition home or self-care (01) | DRG 640 ==
LOC: EMS 05:16 → 5N 09:54
PROVIDERS: ADMIT Internal Medicine; ATTEND Internal Medicine
DX: E87.5 Hyperkalemia (principal); N18.6 End stage renal disease; U07.1 COVID-19; I13.2 Hypertensive heart and chronic kidney disease with heart failure and with stage 5 chronic kidney disease, or end stage renal disease; E11.22 Type 2 diabetes mellitus with diabetic chronic kidney disease; E66.9 Obesity, unspecified; D63.1 Anemia in chronic kidney disease; E11.40 Type 2 diabetes mellitus with diabetic neuropathy, unspecified; I25.10 Atherosclerotic heart disease of native coronary artery without angina pectoris; I50.9 Heart failure, unspecified; Z99.2 Dependence on renal dialysis; Z88.5 Allergy status to narcotic agent; Z79.899 Other long term (current) drug therapy; Z90.49 Acquired absence of other specified parts of digestive tract; Z89.421 Acquired absence of other right toe(s); Z68.30 Body mass index [BMI] 30.0-30.9, adult; Z87.01 Personal history of pneumonia (recurrent)
CPT/HCPCS: 80053; 82962; 85025; 87340; 90935; 93005; 99285; J0610; J1815; J1940; J3490; J7030

== ENCOUNTER 2023-11-28 14:44 | Inpatient (IN) | payer MEDICARE, OTHER ==
[~2023-11-28] VITALS: Ht 177.8 cm; Wt 95.8 kg
[~2023-11-28 14:44] MED LIST changes: +ATOR10TA69 PO; +CINA30TA5 PO; -GLIP5TAB12 PO; +GLIP5TAB16 PO; +HYDR-3422 PO; +SENN-297 PO; -SEVE800T17 PO; +SEVE800T38 PO
[2023-11-28] MEDS: AmLODIPine BESYLATE 10 MG TABLET PO ONE (16:13)
[2023-11-28 16:23] LABS: BASOPHILS % (AUTO) 0.8 % (0.0-2.0); EOSINOPHILS % (AUTO) 1.8 % (1.0-6.0); HEMOGLOBIN 12.8 g/dL (13.5-17.5); LYMPHOCYTES # (AUTO) 1.1 K/uL (1.0-4.8); LYMPHOCYTES % (AUTO) 14.3 % (22.0-44.0); MEAN CORPUSCULAR HEMOGLOBIN 29.7 pg (26.0-34.0); MEAN CORPUSCULAR HGB CONC 32.8 G/dL (31.0-37.0); MEAN CORPUSCULAR VOLUME 90 fL (80-100); MONOCYTES # (AUTO) 0.6 K/uL (0.1-1.0); MONOCYTES % (AUTO) 8.4 % (2.0-9.0); NEUTROPHILS # (AUTO) 5.5 K/uL (1.8-7.7); NEUTROPHILS % (AUTO) 74.7 % (40.0-70.0); PLATELET COUNT (AUTO) 191 K/uL (150-450); RED BLOOD CELL COUNT(AUTO) 4.31 MIL/uL (4.50-5.90); RED CELL DISTRIBUTION WIDTH 15.7 % (11.5-14.5); WHITE BLOOD COUNT (AUTO) 7.3 K/uL (4.5-11.0)
[2023-11-28 16:42] LABS: TROPONIN I-HIGH SENSITIVITY 17 ng/L (<76)
[2023-11-28 16:49] LABS: CALCIUM, TOTAL 9.5 mg/dL (8.8-10.5); CREATININE 7.03 mg/dL (0.60-1.30); POTASSIUM 4.5 mmol/L (3.5-5.1)
[2023-11-28 16:56] LABS: ALBUMIN 3.7 g/dL (3.4-5.0); TOTAL PROTEIN, SERUM 7.9 g/dL (6.4-8.2)
[2023-11-28 17:15] LABS: BILIRUBIN,TOTAL 0.4 mg/dL (0.1-1.0)
[2023-11-28] MEDS: LABETALOL HCL 5 MG/ML 20 ML VIAL IVP ONE (17:58)
[2023-11-28 23:15] VITALS: BP 185/99; PULSE 94; RESP 20; TEMP 98
[2023-11-28] MEDS ORDERED: MAGNESIUM HYDROXIDE SUSPENSION 30 ML UDCUP PO PRN (23:15)
[2023-11-28] MEDS ORDERED: GABAPENTIN 100 MG CAPSULE PO PRN (23:15)
[2023-11-28] MEDS ORDERED: BISACODYL 10 MG RECTAL RECTAL SUPPOSITORY PR PRN (23:15)
[2023-11-28] MEDS ORDERED: IPRATROPIUM BROMIDE 0.5 MG/2.5 ML NEB SOLUTION NEB PRN (23:15)
[2023-11-28] MEDS ORDERED: ONDANSETRON HCL 4 MG/2 ML VIAL IVP PRN (23:15)
[2023-11-28] MEDS ORDERED: ALBUTEROL SULFATE 2.5 MG/0.5 ML NEB SOLUTION NEB PRN (23:15)
[2023-11-28] MEDS ORDERED: DEXTROSE 50%-WATER 25 GM/50 ML SYRINGE IVP PRN (23:15)
[2023-11-29] MEDS: AmLODIPine BESYLATE 10 MG TABLET PO ONE (00:22)
[2023-11-29] MEDS: ZOLPIDEM TARTRATE 5 MG TABLET PO PRN (00:22)
[2023-11-29] MEDS: CARVEDILOL 12.5 MG TABLET PO SCH (00:22)
[2023-11-29] MEDS: HEPARIN SODIUM,PORCINE 5,000 UNITS/ML VIAL SQ SCH (00:22)
[2023-11-29] MEDS: CARVEDILOL 12.5 MG TABLET PO ONE (00:23)
[2023-11-29] MEDS: HydrALAZINE HCL 20 MG/ML VIAL IVP PRN (05:09)
[2023-11-29 05:11] VITALS: BP 163/81; PULSE 93; RESP 18; TEMP 98.3
[2023-11-29] MEDS: GlipiZIDE 5 MG TABLET PO SCH (05:31)
[2023-11-29 06:35] LABS: GLUCOMETER DEV NAME(LOC) 5N.2C; GLUCOSE,POINT OF CARE 77 MG/DL (70-110)
[2023-11-29 06:50] LABS: EOSINOPHILS % (AUTO) 3.6 % (1.0-6.0); HEMATOCRIT 37.8 % (41-53); HEMOGLOBIN 12.6 g/dL (13.5-17.5); LYMPHOCYTES # (AUTO) 1.5 K/uL (1.0-4.8); LYMPHOCYTES % (AUTO) 23.9 % (22.0-44.0); MEAN CORPUSCULAR HEMOGLOBIN 30.3 pg (26.0-34.0); MEAN CORPUSCULAR HGB CONC 33.3 G/dL (31.0-37.0); MEAN CORPUSCULAR VOLUME 91 fL (80-100); MONOCYTES # (AUTO) 0.7 K/uL (0.1-1.0); MONOCYTES % (AUTO) 10.3 % (2.0-9.0); NEUTROPHILS # (AUTO) 3.9 K/uL (1.8-7.7); NEUTROPHILS % (AUTO) 61.2 % (40.0-70.0); PLATELET COUNT (AUTO) 186 K/uL (150-450); RED BLOOD CELL COUNT(AUTO) 4.15 MIL/uL (4.50-5.90); RED CELL DISTRIBUTION WIDTH 15.7 % (11.5-14.5); WHITE BLOOD COUNT (AUTO) 6.4 K/uL (4.5-11.0)
[2023-11-29 07:13] LABS: ALBUMIN 3.5 g/dL (3.4-5.0); BILIRUBIN,TOTAL 0.4 mg/dL (0.1-1.0); CALCIUM, TOTAL 9.3 mg/dL (8.8-10.5); CREATININE 8.47 mg/dL (0.60-1.30); POTASSIUM 4.8 mmol/L (3.5-5.1); TOTAL PROTEIN, SERUM 7.5 g/dL (6.4-8.2)
[2023-11-29 08:00] VITALS: BP 168/91; PULSE 91; TEMP 98
[2023-11-29] MEDS: AmLODIPine BESYLATE 10 MG TABLET PO SCH (10:14)
[2023-11-29] MEDS: SEVELAMER CARBONATE 800 MG TABLET PO SCH (10:14)
[2023-11-29] MEDS: ATORVASTATIN CALCIUM 10 MG TABLET PO SCH (10:16)
[2023-11-29] MEDS: CALCIUM ACETATE 667 MG CAPSULE PO SCH (10:16)
[2023-11-29] MEDS: PANTOPRAZOLE SODIUM 40 MG DR TABLET PO SCH (10:16)
[2023-11-29] MEDS: SENNOSIDES/DOCUSATE SODIUM 8.6-50 MG TABLET PO SCH (10:16)
[2023-11-29] MEDS: CINACALCET HCL 30 MG TABLET PO SCH (10:16)
[2023-11-29 10:57] VITALS: BP 150/89; PULSE 102; RESP 18; TEMP 98
[2023-11-29] MEDS: ACETAMINOPHEN 325 MG TABLET PO PRN (11:59)
[2023-11-29] MEDS: INSULIN LISPRO 100 UNITS/ML SQ PRN (12:25)
[2023-11-29] MEDS ORDERED: CARV12 PO (14:57)
[2023-11-29] MEDS ORDERED: ATOR10TA69 PO (14:57)
[2023-11-29] MEDS ORDERED: AMLO-258 PO (14:58)
[2023-11-29] MEDS ORDERED: HydrOXYzine HCL 50 MG TABLET PO SCH (21:00)
[2023-11-29 21:10] LABS: GLUCOMETER DEV NAME(LOC) 5N.2C; GLUCOSE,POINT OF CARE 222 MG/DL (70-110)
== END 2023-11-29 16:20 | disposition home or self-care (01) | DRG 304 ==
LOC: EMS 14:44 → 5N 21:31
PROVIDERS: ADMIT Hospitalist; ATTEND Hospitalist
DX: I16.1 Hypertensive emergency (principal); N18.6 End stage renal disease; E87.1 Hypo-osmolality and hyponatremia; E11.22 Type 2 diabetes mellitus with diabetic chronic kidney disease; I13.2 Hypertensive heart and chronic kidney disease with heart failure and with stage 5 chronic kidney disease, or end stage renal disease; I50.9 Heart failure, unspecified; Z88.5 Allergy status to narcotic agent; I25.10 Atherosclerotic heart disease of native coronary artery without angina pectoris; Z99.2 Dependence on renal dialysis
CPT/HCPCS: 71045; 80053; 82962; 84484; 85025; 93005; 99285; J0360; J1644; J3490; 36415-L1; 36415-TC

== ENCOUNTER 2024-01-03 16:09 | Emergency (ER) | payer MEDICARE, OTHER ==
[~2024-01-03] VITALS: Ht 180.3 cm; Wt 98.0 kg
[2024-01-03 16:19] VITALS: BP 179/105; PULSE 111; RESP 16; TEMP 98.3
== END 2024-01-03 19:25 | disposition home or self-care (01) ==
LOC: EMS 16:15
DX: M20.012 Mallet finger of left finger(s) (principal); I11.0 Hypertensive heart disease with heart failure; I50.9 Heart failure, unspecified; E11.9 Type 2 diabetes mellitus without complications; I25.10 Atherosclerotic heart disease of native coronary artery without angina pectoris; Z88.5 Allergy status to narcotic agent
CPT/HCPCS: 82962; 99283

== ENCOUNTER 2024-02-16 16:02 | Emergency (ER) | payer MEDICARE, OTHER ==
[~2024-02-16] VITALS: Ht 175.3 cm; Wt 90.9 kg
[2024-02-16 16:12] VITALS: BP 122/84; PULSE 112; RESP 18; TEMP 98.5
[2024-02-16] MEDS ORDERED: HYDR-4808 PO (16:15)
[2024-02-16] MEDS ORDERED: AMLO10TA55 PO (16:15)
[2024-02-16] MEDS ORDERED: [UNRECOGNIZED DRUG - CODE] SQ (16:15)
[2024-02-16] MEDS ORDERED: HYDR50CA6 PO (16:15)
[2024-02-16] MEDS ORDERED: SEMA0.258 SQ (16:15)
[2024-02-16] MEDS ORDERED: LATA2.5D14 OU (16:15)
== END 2024-02-16 17:13 | disposition home or self-care (01) ==
LOC: EMS 16:02
DX: M20.012 Mallet finger of left finger(s) (principal); I11.0 Hypertensive heart disease with heart failure; I50.9 Heart failure, unspecified; E11.9 Type 2 diabetes mellitus without complications; Z88.5 Allergy status to narcotic agent
CPT/HCPCS: 82962; 99282; 99283

== ENCOUNTER 2025-07-28 12:32 | Emergency (ER) | payer MEDICARE, OTHER ==
[~2025-07-28] VITALS: Ht 177.8 cm; Wt 90.7 kg
[~2025-07-28 12:32] MED LIST changes: -ACET-2247 PO; -AMLO-258 PO; +AMLO10TA55 PO; -ATOR10TA69 PO; -CALC667C PO; -CARV12 PO; -CINA30TA5 PO; -GABA-529 PO; -HYDR-3422 PO; +HYDR-4808 PO; +HYDR50CA6 PO; +LATA2.5D7 OU; +SEMA0.258 SQ; -SENN-297 PO; +SEVE800T24 PO; -SEVE800T38 PO; +[UNRECOGNIZED DRUG - CODE] SQ
[2025-07-28 12:35] VITALS: BP 124/75; PULSE 87; RESP 18; TEMP 98.1; O2SAT 98
[2025-07-28 13:27] LABS: PLATELET COUNT (AUTO) 215 K/uL (150-450); RED BLOOD CELL COUNT(AUTO) 4.43 MIL/uL (4.50-5.90); RED CELL DISTRIBUTION WIDTH 14.3 % (11.5-14.5); WHITE BLOOD COUNT (AUTO) 7.3 K/uL (4.5-11.0)
[2025-07-28 13:32] LABS: CALCIUM, TOTAL 9.0 mg/dL (8.8-10.5); CREATININE 8.87 mg/dL (0.60-1.30); GLOMERULAR FILTR. RATE CALC 6 mL/min (>60); GLUCOSE,RANDOM 272 mg/dL (70-110); SODIUM SERUM 128 mmol/L (136-145); UREA NITROGEN, BLOOD 31 mg/dL (7-18)
[2025-07-28 13:40] LABS: TROPONIN I-HIGH SENSITIVITY 13 ng/L (<76)
[2025-07-28 14:25] LABS: ASPARTATE AMINOTRANSFERASE 11.0 U/L (15-37); TOTAL PROTEIN, SERUM 8.0 g/dL (6.4-8.2)
[2025-07-28] MEDS: FAMOTIDINE 20 MG TABLET PO ONE (14:51)
[2025-07-28] MEDS: MAG HYDROX/ALUMINUM HYD/SIMETH 30 ML SUSPENSION UDCUP PO ONE (14:51)
[2025-07-28] MEDS: ACETAMINOPHEN 500 MG TABLET PO ONE (14:52)
[2025-07-28] MEDS ORDERED: OMEP-148 PO (15:06)
== END 2025-07-28 15:15 | disposition home or self-care (01) ==
LOC: EMS 12:33
DX: R10.9 Unspecified abdominal pain (principal); E11.22 Type 2 diabetes mellitus with diabetic chronic kidney disease; I13.2 Hypertensive heart and chronic kidney disease with heart failure and with stage 5 chronic kidney disease, or end stage renal disease; N18.6 End stage renal disease; I25.10 Atherosclerotic heart disease of native coronary artery without angina pectoris; Z98.890 Other specified postprocedural states; Z79.85 Long-term (current) use of injectable non-insulin antidiabetic drugs; Z90.49 Acquired absence of other specified parts of digestive tract; Z88.5 Allergy status to narcotic agent; Z99.2 Dependence on renal dialysis; Z79.899 Other long term (current) drug therapy
CPT/HCPCS: 80048; 80076; 82962; 83690; 84484; 85025; 93005; 99284

== ENCOUNTER 2025-08-05 16:47 | Emergency (ER) | payer MEDICARE, OTHER ==
[~2025-08-05] VITALS: Ht 177.8 cm; Wt 90.9 kg
[~2025-08-05 16:47] MED LIST changes: +OMEP-148 PO
[2025-08-05 18:56] LABS: PLATELET COUNT (AUTO) 197 K/uL (150-450); RED BLOOD CELL COUNT(AUTO) 4.50 MIL/uL (4.50-5.90); RED CELL DISTRIBUTION WIDTH 14.2 % (11.5-14.5); WHITE BLOOD COUNT (AUTO) 5.9 K/uL (4.5-11.0)
[2025-08-05 19:10] LABS: CALCIUM, TOTAL 9.4 mg/dL (8.8-10.5); CREATININE 6.69 mg/dL (0.60-1.30); GLOMERULAR FILTR. RATE CALC 9.0 mL/min (>60); GLUCOSE,RANDOM 209.0 mg/dL (70-110); SODIUM SERUM 133.0 mmol/L (136-145); UREA NITROGEN, BLOOD 26.0 mg/dL (7-18)
[2025-08-05 19:14] LABS: ASPARTATE AMINOTRANSFERASE 23.0 U/L (15-37); TOTAL PROTEIN, SERUM 8.1 g/dL (6.4-8.2)
[2025-08-05] MEDS: OMEPRAZOLE 20 MG CAPSULE PO ONE (20:07)
[2025-08-05] MEDS: SODIUM ZIRCONIUM CYCLOSILICATE 10 GM POWDER PACKET PO ONE (21:05)
[2025-08-05] MEDS ORDERED: POLY119P3 PO (21:18)
[2025-08-05 21:32] VITALS: BP 143/79; PULSE 79; RESP 18; TEMP 97.3; O2SAT 99
== END 2025-08-05 22:57 | disposition home or self-care (01) ==
LOC: EMS 16:49
DX: K59.00 Constipation, unspecified (principal); R10.33 Periumbilical pain; E11.22 Type 2 diabetes mellitus with diabetic chronic kidney disease; E87.5 Hyperkalemia; I13.2 Hypertensive heart and chronic kidney disease with heart failure and with stage 5 chronic kidney disease, or end stage renal disease; N18.6 End stage renal disease; I25.10 Atherosclerotic heart disease of native coronary artery without angina pectoris; Z98.890 Other specified postprocedural states; Z88.5 Allergy status to narcotic agent; Z90.49 Acquired absence of other specified parts of digestive tract; Z99.2 Dependence on renal dialysis; Z79.85 Long-term (current) use of injectable non-insulin antidiabetic drugs; Z79.899 Other long term (current) drug therapy
CPT/HCPCS: 74018; 80048; 80076; 82962; 83690; 85025; 93005; 99285; 36415-L1; 36415-TC

== ENCOUNTER 2025-08-09 17:01 | Emergency (ER) | payer MEDICARE, OTHER ==
[~2025-08-09] VITALS: Ht 177.8 cm; Wt 199.0 kg
[~2025-08-09 17:01] MED LIST changes: -HYDR-4808 PO; -HYDR50CA6 PO; +POLY119P3 PO; -[UNRECOGNIZED DRUG - CODE] SQ
[2025-08-09 17:24] VITALS: BP 156/81; PULSE 84; RESP 18; TEMP 98.1; O2SAT 96
[2025-08-09] MEDS ORDERED: BISA-151 PO (19:55)
[2025-08-10] MEDS ORDERED: SENN-376 PO (20:48)
[2025-08-10] MEDS ORDERED: MELA5TAB40 PO (20:48)
[2025-08-10] MEDS ORDERED: ACET-2247 PO (20:48)
== END 2025-08-09 20:19 | disposition home or self-care (01) ==
LOC: EMS 17:16
DX: K59.00 Constipation, unspecified (principal); I13.2 Hypertensive heart and chronic kidney disease with heart failure and with stage 5 chronic kidney disease, or end stage renal disease; N18.6 End stage renal disease; E11.22 Type 2 diabetes mellitus with diabetic chronic kidney disease; I25.10 Atherosclerotic heart disease of native coronary artery without angina pectoris; Z98.890 Other specified postprocedural states; Z79.85 Long-term (current) use of injectable non-insulin antidiabetic drugs; Z90.49 Acquired absence of other specified parts of digestive tract; Z99.2 Dependence on renal dialysis; Z88.5 Allergy status to narcotic agent; Z79.899 Other long term (current) drug therapy
CPT/HCPCS: 82962; 99283

== ENCOUNTER 2025-08-10 16:21 | Emergency (ER) | payer MEDICARE, OTHER ==
[~2025-08-10] VITALS: Ht 177.8 cm; Wt 90.0 kg
[~2025-08-10 16:21] MED LIST changes: +BISA-151 PO
[2025-08-10 16:27] VITALS: TEMP 97.9
[2025-08-10 18:01] LABS: PLATELET COUNT (AUTO) 194 K/uL (150-450); RED BLOOD CELL COUNT(AUTO) 4.34 MIL/uL (4.50-5.90); RED CELL DISTRIBUTION WIDTH 14.3 % (11.5-14.5); WHITE BLOOD COUNT (AUTO) 5.8 K/uL (4.5-11.0)
[2025-08-10 18:06] LABS: CALCIUM, TOTAL 9.6 mg/dL (8.8-10.5); CREATININE 7.5 mg/dL (0.60-1.30); GLOMERULAR FILTR. RATE CALC 8.0 mL/min (>60); GLUCOSE,RANDOM 102.0 mg/dL (70-110); SODIUM SERUM 136.0 mmol/L (136-145); UREA NITROGEN, BLOOD 22.0 mg/dL (7-18)
[2025-08-10 18:10] LABS: ASPARTATE AMINOTRANSFERASE 14.0 U/L (15-37); TOTAL PROTEIN, SERUM 8.1 g/dL (6.4-8.2)
[2025-08-10] MEDS ORDERED: SENN-376 PO (20:48)
[2025-08-10] MEDS ORDERED: ACET-2247 PO (20:48)
[2025-08-10] MEDS ORDERED: MELA5TAB40 PO (20:48)
[2025-08-10] MEDS: ACETAMINOPHEN 500 MG TABLET PO ONE (20:54)
[2025-08-10 21:12] VITALS: BP 155/79; PULSE 79; RESP 18; O2SAT 98
[2025-08-11] MEDS ORDERED: POLY119P3 PO (19:10)
== END 2025-08-10 21:39 | disposition home or self-care (01) ==
LOC: EMS 16:25
DX: K59.00 Constipation, unspecified (principal); I13.2 Hypertensive heart and chronic kidney disease with heart failure and with stage 5 chronic kidney disease, or end stage renal disease; N18.6 End stage renal disease; E11.22 Type 2 diabetes mellitus with diabetic chronic kidney disease; I25.10 Atherosclerotic heart disease of native coronary artery without angina pectoris; Z98.890 Other specified postprocedural states; Z79.85 Long-term (current) use of injectable non-insulin antidiabetic drugs; Z99.2 Dependence on renal dialysis; Z88.5 Allergy status to narcotic agent; Z90.49 Acquired absence of other specified parts of digestive tract; Z79.899 Other long term (current) drug therapy
CPT/HCPCS: 74176; 80048; 80076; 85025; 99284

== ENCOUNTER 2025-08-11 15:42 | Emergency (ER) | payer MEDICARE, OTHER ==
[~2025-08-11] VITALS: Ht 177.8 cm; Wt 90.0 kg
[~2025-08-11 15:42] MED LIST changes: +ACET-2247 PO; +MELA5TAB40 PO; +SENN-376 PO
[2025-08-11 15:56] VITALS: BP 165/91; PULSE 86; RESP 16; TEMP 98.1; O2SAT 98
[2025-08-11 16:35] LABS: PLATELET COUNT (AUTO) 203 K/uL (150-450); RED BLOOD CELL COUNT(AUTO) 4.38 MIL/uL (4.50-5.90); RED CELL DISTRIBUTION WIDTH 14.7 % (11.5-14.5); WHITE BLOOD COUNT (AUTO) 4.9 K/uL (4.5-11.0)
[2025-08-11 16:45] LABS: CALCIUM, TOTAL 9.8 mg/dL (8.8-10.5); CREATININE 9.34 mg/dL (0.60-1.30); GLOMERULAR FILTR. RATE CALC 6.0 mL/min (>60); GLUCOSE,RANDOM 114.0 mg/dL (70-110); SODIUM SERUM 132.0 mmol/L (136-145); UREA NITROGEN, BLOOD 29.0 mg/dL (7-18)
[2025-08-11] MEDS ORDERED: POLY119P3 PO (19:10)
[2025-08-11] MEDS: SODIUM ZIRCONIUM CYCLOSILICATE 5 GM POWDER PACKET PO ONE (19:12)
[2025-08-11] MEDS: SODIUM ZIRCONIUM CYCLOSILICATE 10 GM POWDER PACKET PO ONE (19:12)
== END 2025-08-11 20:34 | disposition home or self-care (01) ==
LOC: EMS 15:42
DX: E87.5 Hyperkalemia (principal); K59.00 Constipation, unspecified; E11.22 Type 2 diabetes mellitus with diabetic chronic kidney disease; I13.2 Hypertensive heart and chronic kidney disease with heart failure and with stage 5 chronic kidney disease, or end stage renal disease; N18.6 End stage renal disease; I25.10 Atherosclerotic heart disease of native coronary artery without angina pectoris; Z98.890 Other specified postprocedural states; Z79.85 Long-term (current) use of injectable non-insulin antidiabetic drugs; Z88.5 Allergy status to narcotic agent; Z90.49 Acquired absence of other specified parts of digestive tract; Z99.2 Dependence on renal dialysis; Z79.899 Other long term (current) drug therapy
CPT/HCPCS: 80048; 82962; 83690; 85025; 99283